=== PATIENT | female | born 1990 | race Caucasian/White ===

== ENCOUNTER 2016-09-23 07:55 | Emergency (ER) | payer OTHER ==
--- NOTE | 2016-09-23 08:10 | ED ---
Skin/Abscess/FB HPI - General Chief complaint: Skin/Abscess/Foreign Body Stated complaint: bite on leg Time Seen by Provider: 09/23/16 08:05 Source: patient, RN notes reviewed Mode of arrival: ambulatory Limitations: no limitations - History of Present Illness Initial comments: 26-year-old female presents emergency Department chief complaint right leg redness. Patient states started yesterday worse today. Patient states it appears something bit her right calf region and she woke up today noticed some redness or streaking towards her knee. Patient has no pain with range of motion of her right knee. Patient denies fever, chills. Patient has no history of MRSA or VRE. Patient states that there is no drainage. Patient states there is essential roger in the redness on her right calf region. - Related Data Previous Rx's Medication Instructions Recorded Cephalexin [Keflex] 500 mg PO Q6HR #40 cap 09/23/16 Allergies Allergy/AdvReac Type Severity Reaction Status Date / Time No Known Allergies Allergy Verified 09/23/16 07:59 Review of Systems ROS Statement: Those systems with pertinent positive or pertinent negative responses have been documented in the HPI. ROS Other: All systems not noted in ROS Statement are negative. Past Medical History Past Medical History: Asthma History of Any Multi-Drug Resistant Organisms: None Reported Past Surgical History: No Surgical Hx Reported Past Psychological History: No Psychological Hx Reported Smoking Status: Former smoker Past Alcohol Use History: None Reported Past Drug Use History: None Reported - Past Family History Mother Family Medical History: Hyperlipidemia, Hypertension General Exam Limitations: no limitations General appearance: alert, in no apparent distress Respiratory exam: Present: normal lung sounds bilaterally. Absent: respiratory distress, wheezes, rales, rhonchi, stridor Cardiovascular Exam: Present: regular rate, normal rhythm, normal heart sounds. Absent: systolic murmur, diastolic murmur, rubs, gallop, clicks Extremities exam: Present: other (Right calf there is a 4 cm area of erythema with central lesion noted, nonfunctional and there is no abscess noted there is some streaking redness to the lateral aspect of her right leg towards her knee. Patient has full range of motion of her right knee no swelling no warmth or pain with range of motion neurovascular intact) Course Vital Signs 09/23/16 07:57 Temperature 97.8 F Pulse Rate 77 Respiratory 20 Rate Blood Pressure 131/80 O2 Sat by Pulse 100 Oximetry Medical Decision Making - Medical Decision Making 26-year-old female presented for right leg rash. Patient appears to have cellulitis. Patient was started on Keflex return parameters were discussed Disposition Clinical Impression: Cellulitis of right leg Disposition: HOME SELF-CARE Condition: Stable Instructions: Cellulitis (ED) Additional Instructions: Please return to the Emergency Department if symptoms worsen or any other concerns. Prescriptions: Cephalexin [Keflex] 500 mg PO Q6HR #40 cap Referrals: Quincy Busch DO [Primary Care Provider] - 1-2 days Time of Disposition: 08:10
[2016-09-23 08:36] VITALS: BP 121/69; PULSE 73; RESP 14; TEMP 98.8
== END 2016-09-23 08:36 | disposition home or self-care (01) ==
LOC: EC 07:55
DX: L03.115 Cellulitis of right lower limb (principal); Z87.891 Personal history of nicotine dependence
CPT/HCPCS: 99283

== ENCOUNTER → 2016-11-11 | Outpatient (CLI) | payer OTHER ==
[2016-11-11 10:52] LABS: CH 29.4; CHCM 33.6; HCT 38.3 % (34.0-46.0); HDW 2.51; HGB 12.7 gm/dL (11.4-16.0); MCH 29.2 pg (25.0-35.0); MCHC 33.2 g/dL (31.0-37.0); MCV 87.9 fL (80.0-100.0); Mean Platelet Volume 7.9; RBC 4.36 m/uL (3.80-5.40); RDW 13.5 % (11.5-15.5)
[2016-11-11 11:10] LABS: Glucose 88 mg/dL (74-99); Non-African American GFR(MDRD) >60 (>60 ml/min/1.73 sqM)
[2016-11-11 11:40] LABS: Hepatitis B Surface Ag Index 0.05
== END | disposition home or self-care (01) ==
LOC: LABWHC1 10:29
PROVIDERS: ATTEND Obstetrics & Gynecology
DX: Z34.81 Encounter for supervision of other normal pregnancy, first trimester (principal); Z3A.00 Weeks of gestation of pregnancy not specified
CPT/HCPCS: 36415; 82565; 82947; 85027; 86762; 86780; 86850; 86870; 86880; 86886; 86900; 86901; 87340

== ENCOUNTER 2017-02-11 23:37 | Outpatient (CLI) | payer OTHER ==
[2017-02-11 23:55] VITALS: BP 127/58; PULSE 93; RESP 16; TEMP 96.3
[2017-02-12 00:35] LABS: Appearance,Urine Clear (Clear); Bacteria,Urine Rare /hpf; Bilirubin,Urine Negative (Negative); Glucose,Urine (UA) Negative (Negative); Ketones,Urine Trace (Negative); Leukocyte Esterase,Urine Trace (Negative); Mucus,Urine Rare /hpf; Nitrite,Urine Negative (Negative); Particle Count 3230; Protein,Urine Trace (Negative); RBC,Urine <1 /hpf (0-5); Specific Gravity,Urine 1.028 (1.001-1.035); Squamous Epithelial Cell,Urine 1 /hpf (0-4); UA Billing (MACRO vs. MICRO) MICRO; WBC,Urine <1 /hpf (0-5)
--- NOTE | 2017-02-12 06:42 | P.MSEPDOC ---
Presenting Problems - Arrival Data Date of Arrival on Unit: 02/11/17 Time of Arrival on Unit: 23:39 Mode of Transport: Wheelchair - Complaint OB-Reason for Admission/Chief Complaint: Possible Onset of Labor Comment: Cramping like pain intermittantly since around 1900 this evening that has worsened Medical History - Information : 6 Para: 3 Term: 2 : 1 Abortions: Spontaneous or Elective: 2 Number of Living Children: 3 - Gestational Age Expected Date of Delivery: 06/03/17 Gestational Age by JILL (wks/days): 24 Weeks and 1 Days - History Comment: Asthma Review of Systems - Review of Systems Constitutional: No problems Breast: No problems ENT: No problems Cardiovascular: No problems Respiratory: No problems Gastrointestinal: No problems Genitourinary: No problems Musculoskeletal: No problems Neurological: No problems Skin: No problems Vital Signs - Temperature Temperature: 96.3 F Temperature Source: Temporal Artery Scan - Pulse Pulse Oximetery Pulse Rate: 93 Pulse Assessment Method: Pulse Oximetry - Respirations Respiratory Rate: 16 Oxygen Delivery Method: Room Air - Blood Pressure Sitting Blood Pressure: 127/58 Blood Pressure Mean: 81 Blood Pressure Source: Automatic Cuff Medical Screen Scoring (Pre) - Cervical Exam Dilation: 0 cm = 0 Membranes: Intact - Uterine Contractions Frequency: N/A Duration: N/A Intensity: N/A - Maternal Vital Signs Maternal Temperature: N/A Maternal Blood Pressure: N/A Signs of Preeclampsia: N/A Maternal Respirations: N/A - Maternal Trauma Maternal Trauma: N/A - Assessment Baseline FHR: 155 Heart Rate - NICHD Category: Category I (Normal) = 0 NST: Reactive Position: N/A Station: N/A - Total Score Total Score (Pre): 0 Physician Notification (Pre) - Physician Notified Physician Notified Date: 02/11/17 Physician Notified Time: 23:54 Physician/Practitioner Notifed:: Dr. Yan - Notification Comment Comment: Dr. Yan states to check cervix, discard ffn if patient is closed. Collected and send a ua. Medical Screen Scoring (Post) - Cervical Exam Dilation: 0 cm = 0 Membranes: Intact - Maternal Vital Signs Maternal Temperature: N/A Signs of Preeclampsia: N/A Maternal Respirations: N/A - Maternal Trauma Maternal Trauma: N/A - Assessment Heart Rate: 150 - Total Score Total Score (Post): 0 - Post Treatment Level of Risk Post Treatment Level of Risk: Low (0-5) Physician Notification (Post) - Physician Notified Physician Notified Date: 02/12/17 Physician Notified Time: 00:41 Physician/Practitioner Notified:: Dr Yan Spoke With: Dr Yan New Order Received: Yes - Notification Comment Comment: pt to be d/c home, if symptoms get worse to come back in Disposition - Disposition OB Disposition: Discharge to home Discharge Date: 02/12/17 Discharge Time: 00:45 I agree with the RN Medical Screening Exam: Yes Risk & Benefit of care provided described in d/c instruction: Yes Diagnosis: FALSE LABOR BEFORE 37 COMPLETED WEEKS OF GEST, SECOND TRI
== END 2017-02-12 00:45 | disposition home or self-care (01) ==
LOC: FBPOP 23:37
PROVIDERS: ATTEND Obstetrics & Gynecology
DX: O47.03 False labor before 37 completed weeks of gestation, third trimester (principal); Z3A.24 24 weeks gestation of pregnancy
CPT/HCPCS: 81001; G0463; 99213

== ENCOUNTER → 2017-03-06 | Outpatient (CLI) | payer OTHER ==
[2017-03-06 09:40] LABS: CH 28.4; CHCM 33.1; HCT 33.5 % (34.0-46.0); HDW 3.17; HGB 11.3 gm/dL (11.4-16.0); MCH 29.1 pg (25.0-35.0); MCHC 33.8 g/dL (31.0-37.0); MCV 86.1 fL (80.0-100.0); Mean Platelet Volume 8.2; RBC 3.88 m/uL (3.80-5.40); RDW 14.2 % (11.5-15.5); WBC 11.2 k/uL (3.8-10.6)
== END | disposition home or self-care (01) ==
LOC: LABWHC1 08:08
PROVIDERS: ATTEND Obstetrics & Gynecology
DX: Z34.82 Encounter for supervision of other normal pregnancy, second trimester (principal)
CPT/HCPCS: 36415; 82950; 85027; 86850; 86870; 86880; 86886

== ENCOUNTER 2017-05-08 05:24 | Outpatient (CLI) | payer BC, OTHER ==
[2017-05-08 07:51] VITALS: BP 126/66; PULSE 92; RESP 17; TEMP 97.4
--- NOTE | 2017-05-11 08:50 | P.MSEPDOC ---
Presenting Problems - Arrival Data Date of Arrival on Unit: 05/08/17 Time of Arrival on Unit: 05:27 Mode of Transport: Wheelchair - Complaint OB-Reason for Admission/Chief Complaint: Possible Onset of Labor Comment: Contractions beginning about 0200 with vaginal pressure starting about 0400 Medical History - Information : 6 Para: 3 Term: 2 : 1 Abortions: Spontaneous or Elective: 2 Number of Living Children: 3 - Gestational Age Gestational Age by JILL (wks/days): 36 Weeks and 2 Days - History Complications: Incompetent Cervix, Prior Comment: Previous 34 week delivery with first . Documented short cervix with this . Review of Systems - Review of Systems Constitutional: No problems Breast: No problems ENT: No problems Cardiovascular: No problems Respiratory: No problems Gastrointestinal: No problems Genitourinary: No problems Musculoskeletal: No problems Neurological: No problems Skin: No problems Vital Signs - Temperature Temperature: 97.4 F Temperature Source: Temporal Artery Scan - Pulse Pulse Oximetery Pulse Rate: 92 Pulse Assessment Method: Pulse Oximetry - Respirations Respiratory Rate: 17 Oxygen Delivery Method: Room Air O2 Sat by Pulse Oximetry: 98 - Blood Pressure Right Arm Blood Pressure: 126/66 Blood Pressure Mean: 86 Blood Pressure Source: Automatic Cuff Medical Screen Scoring (Pre) - Cervical Exam Dilation: 1-3 cm = 1 Membranes: Intact - Uterine Contractions Frequency: N/A Duration: N/A Intensity: N/A - Maternal Vital Signs Maternal Temperature: N/A Maternal Blood Pressure: N/A Signs of Preeclampsia: N/A Maternal Respirations: N/A - Maternal Trauma Maternal Trauma: N/A - Assessment Baseline FHR: 140 Heart Rate - NICHD Category: Category I (Normal) = 0 NST: Reactive Position: N/A Station: N/A - Total Score Total Score (Pre): 1 - Level of Risk Level of Risk: Low (0-5) Physician Notification (Pre) - Physician Notified Physician Notified Date: 05/08/17 Physician Notified Time: 06:33 Physician/Practitioner Notifed:: Elysia Spoke With: Elysia New Order Received: Yes (Discharge orders) Disposition - Disposition OB Disposition: Discharge to home Discharge Date: 05/08/17 Discharge Time: 06:40 I agree with the RN Medical Screening Exam: Yes Risk & Benefit of care provided described in d/c instruction: Yes Diagnosis: FALSE LABOR BEFORE 37 COMPLETED WEEKS OF GEST, THIRD TRI
== END 2017-05-08 06:40 | disposition home or self-care (01) ==
LOC: FBPOP 05:24
PROVIDERS: ATTEND Obstetrics & Gynecology
DX: O47.03 False labor before 37 completed weeks of gestation, third trimester (principal); Z3A.36 36 weeks gestation of pregnancy
CPT/HCPCS: 59025; G0463; 99213

== ENCOUNTER 2017-05-19 02:32 | Outpatient (CLI) | payer OTHER ==
[2017-05-19 04:12] VITALS: BP 127/68; PULSE 85; RESP 16; TEMP 97.1
--- NOTE | 2017-05-19 11:17 | P.MSEPDOC ---
Presenting Problems - Arrival Data Date of Arrival on Unit: 05/19/17 Time of Arrival on Unit: 02:32 Mode of Transport: Ambulatory - Complaint OB-Reason for Admission/Chief Complaint: Possible Onset of Labor Comment: c/o itching, nausea with contractions, and contractions. Medical History - Information : 6 Para: 3 Term: 2 : 1 Abortions: Spontaneous or Elective: 2 Number of Living Children: 3 - Gestational Age Gestational Age by JILL (wks/days): 37 Weeks and 6 Days Review of Systems - Review of Systems Constitutional: No problems Breast: No problems ENT: No problems Cardiovascular: No problems Respiratory: No problems Gastrointestinal: No problems Genitourinary: No problems Musculoskeletal: No problems Neurological: No problems Skin: Itching Comment: generalized itching on arms and legs. Vital Signs - Temperature Temperature: 97.1 F Temperature Source: Temporal Artery Scan - Pulse Right Pulse Rate: 85 Pulse Assessment Method: Pulse Oximetry - Respirations Respiratory Rate: 16 Oxygen Delivery Method: Room Air O2 Sat by Pulse Oximetry: 100 - Blood Pressure Right Arm Blood Pressure: 127/68 Blood Pressure Mean: 87 Blood Pressure Source: Automatic Cuff Medical Screen Scoring (Pre) - Cervical Exam Dilation: 1-3 cm = 1 Effacement: Exam Deferred Membranes: Intact - Uterine Contractions Frequency: > 5 minutes apart = 1 Duration: > 40 seconds = 2 Intensity: N/A - Maternal Vital Signs Maternal Temperature: N/A Maternal Blood Pressure: N/A Signs of Preeclampsia: N/A Maternal Respirations: N/A - Maternal Trauma Maternal Trauma: N/A - Assessment Baseline FHR: 135 Heart Rate - NICHD Category: Category I (Normal) = 0 NST: Reactive Position: N/A Station: N/A - Total Score Total Score (Pre): 4 - Level of Risk Level of Risk: Low (0-5) Physician Notification (Pre) - Physician Notified Physician Notified Date: 05/19/17 Physician Notified Time: 03:08 Physician/Practitioner Notifed:: Dr. Naidu Spoke With: Dr. Naidu New Order Received: No - Notification Comment Comment: Dr. Naidu notifed of pt c/o generalized itching, nause with contractions starting around 1500, NST, Vitals, and cervical exam. Pt okay to take over the counter benadryl and if not making change ok for discharge. Keep appointment in office with Dr. Yan. Disposition - Disposition OB Disposition: Discharge to home Discharge Date: 05/19/17 Discharge Time: 03:48 I agree with the RN Medical Screening Exam: Yes Risk & Benefit of care provided described in d/c instruction: Yes Diagnosis: FALSE LABOR AT OR AFTER 37 COMPLETED WEEKS OF GESTATION
== END 2017-05-19 03:48 | disposition home or self-care (01) ==
LOC: FBPOP 02:32
PROVIDERS: ATTEND Obstetrics & Gynecology
DX: O47.1 False labor at or after 37 completed weeks of gestation (principal); Z3A.37 37 weeks gestation of pregnancy
CPT/HCPCS: 59025; 99213

== ENCOUNTER 2017-05-25 18:38 | Outpatient (CLI) | payer BC ==
[2017-05-25 19:27] VITALS: PULSE 105; RESP 16; TEMP 97.1
[2017-05-25 20:17] VITALS: BP 124/61
--- NOTE | 2017-06-13 08:07 | P.MSEPDOC ---
Presenting Problems - Arrival Data Date of Arrival on Unit: 05/25/17 Time of Arrival on Unit: 18:40 Mode of Transport: Ambulatory - Complaint OB-Reason for Admission/Chief Complaint: Possible Onset of Labor Medical History - Information : 6 Para: 3 Term: 3 : 0 Abortions: Spontaneous or Elective: 2 Number of Living Children: 3 - Gestational Age Gestational Age by JILL (wks/days): 38 Weeks and 5 Days Review of Systems - Review of Systems Constitutional: No problems Breast: No problems ENT: No problems Cardiovascular: No problems Respiratory: No problems Gastrointestinal: No problems Genitourinary: No problems Musculoskeletal: No problems Neurological: No problems Skin: No problems Vital Signs - Temperature Temperature: 97.1 F Temperature Source: Tympanic - Pulse Right Radial Pulse Rate: 105 Pulse Assessment Method: Automatic Cuff - Respirations Respiratory Rate: 16 Oxygen Delivery Method: Room Air - Blood Pressure Right Arm Blood Pressure: 124/61 Blood Pressure Mean: 82 Blood Pressure Source: Automatic Cuff Medical Screen Scoring (Pre) - Cervical Exam Dilation: 1-3 cm = 1 Effacement: More than 50% = 2 Membranes: Intact - Uterine Contractions Frequency: > 5 minutes apart = 1 Duration: N/A Intensity: N/A - Maternal Vital Signs Maternal Temperature: N/A Maternal Blood Pressure: N/A Signs of Preeclampsia: N/A Maternal Respirations: N/A - Maternal Trauma Maternal Trauma: N/A - Assessment Heart Rate - NICHD Category: Category I (Normal) = 0 NST: Reactive Position: N/A Station: N/A - Total Score Total Score (Pre): 4 - Level of Risk Level of Risk: Low (0-5) Physician Notification (Pre) - Notification Comment Comment: contx since 1 am. states getting stronger and stronger. denies srom and /or bleeding Medical Screen Scoring (Post) - Cervical Exam Dilation: 1-3 cm = 1 Membranes: Intact - Maternal Vital Signs Maternal Temperature: N/A Signs of Preeclampsia: N/A Maternal Respirations: N/A - Assessment Heart Rate: 150 Heart Rate - NICHD Category: Category I (Normal) = 0 NST: Reactive Station: N/A - Total Score Total Score (Post): 1 - Post Treatment Level of Risk Post Treatment Level of Risk: Low (0-5) Physician Notification (Post) - Physician Notified Physician Notified Date: 05/25/17 Physician Notified Time: 19:53 Physician/Practitioner Notified:: Dr. Easton Spoke With: Dr. Easton New Order Received: Yes (D/c pt to home) - Notification Comment Comment: Dr. Easton called and given report on pt in triage, c/o contractions, vag exam,. reactive nst, and vag exam with no change after 1 hour. Orders recieved to d/c pt to. home Disposition - Disposition OB Disposition: Discharge to home Discharge Date: 05/25/17 Discharge Time: 20:00 I agree with the RN Medical Screening Exam: Yes Risk & Benefit of care provided described in d/c instruction: Yes Diagnosis: FALSE LABOR AT OR AFTER 37 COMPLETED WEEKS OF GESTATION
== END 2017-05-25 20:00 | disposition home or self-care (01) ==
LOC: FBPOP 18:38
PROVIDERS: ATTEND Obstetrics & Gynecology
DX: O47.1 False labor at or after 37 completed weeks of gestation (principal); Z3A.38 38 weeks gestation of pregnancy
CPT/HCPCS: 59025; 99213

== ENCOUNTER 2017-05-27 00:03 | Outpatient (CLI) | payer BC ==
[2017-05-27 01:16] VITALS: BP 121/64; PULSE 74; RESP 16; TEMP 97.1
--- NOTE | 2017-06-13 08:06 | P.MSEPDOC ---
Presenting Problems - Arrival Data Date of Arrival on Unit: 05/27/17 Time of Arrival on Unit: 00:03 Mode of Transport: Wheelchair - Complaint OB-Reason for Admission/Chief Complaint: Other Comment: Pt arrives to triage with c/o of itching of bilateral arms and legs, and contractions. Medical History - Information : 6 Para: 3 Term: 3 : 0 Abortions: Spontaneous or Elective: 2 Number of Living Children: 3 - Gestational Age Gestational Age by JILL (wks/days): 39 Weeks and 0 Days Review of Systems - Review of Systems Constitutional: No problems Breast: No problems ENT: No problems Cardiovascular: No problems Respiratory: No problems Gastrointestinal: No problems Genitourinary: No problems Musculoskeletal: No problems Neurological: No problems Skin: Itching Vital Signs - Temperature Temperature: 97.1 F Temperature Source: Oral - Pulse Right Brachial Pulse Rate: 74 Pulse Assessment Method: Automatic Cuff - Respirations Respiratory Rate: 16 Oxygen Delivery Method: Room Air O2 Sat by Pulse Oximetry: 100 - Blood Pressure Right Arm Blood Pressure: 121/64 Blood Pressure Mean: 83 Blood Pressure Source: Automatic Cuff Medical Screen Scoring (Pre) - Cervical Exam Dilation: 1-3 cm = 1 Membranes: Intact - Uterine Contractions Frequency: > 5 minutes apart = 1 Duration: > 40 seconds = 2 - Maternal Vital Signs Maternal Temperature: N/A Signs of Preeclampsia: N/A Maternal Respirations: N/A - Maternal Trauma Maternal Trauma: N/A - Assessment Baseline FHR: 135 Heart Rate - NICHD Category: Category I (Normal) = 0 NST: Reactive Position: N/A Station: N/A - Total Score Total Score (Pre): 4 - Level of Risk Level of Risk: Low (0-5) Physician Notification (Pre) - Physician Notified Physician Notified Date: 05/27/17 Physician Notified Time: 00:37 Physician/Practitioner Notifed:: Dr. Easton Spoke With: Dr. Easton New Order Received: Yes (D/c pt to home) - Notification Comment Comment: Dr. Easton called and given report on pt c/o of itching on both bilat arms and legs, and contractions. Orders recieved to d/c pt to home. Disposition - Disposition OB Disposition: Discharge to home Discharge Date: 05/27/17 Discharge Time: 00:42 I agree with the RN Medical Screening Exam: Yes Physician's MSE Comment: The itching that the patient is complaining of was not new and not severe. Risk & Benefit of care provided described in d/c instruction: Yes Diagnosis: FALSE LABOR AT OR AFTER 37 COMPLETED WEEKS OF GESTATION
== END 2017-05-27 00:42 | disposition home or self-care (01) ==
LOC: FBPOP 00:03
PROVIDERS: ATTEND Obstetrics & Gynecology
DX: O47.1 False labor at or after 37 completed weeks of gestation (principal); Z3A.39 39 weeks gestation of pregnancy
CPT/HCPCS: 59025; 99213

== ENCOUNTER 2017-05-28 06:15 | Inpatient (IN) | payer BC, OTHER ==
[2017-05-28] MEDS ORDERED: CARBOPROST TROMETHAMINE 250 MCG/ML 1 ML AMP IM PRN (06:48)
[2017-05-28] MEDS ORDERED: LIDOCAINE 1% (PF) 10 MG/ML (30 ML SDV) SQ PRN (06:48)
[2017-05-28] MEDS ORDERED: TERBUTALINE 1 MG/ML VIAL SQ PRN (06:48)
[2017-05-28] MEDS ORDERED: OXYTOCIN 10 UNIT/ML 1 ML VIAL IM PRN (06:48)
[2017-05-28] MEDS ORDERED: METHYLERGONOVINE 0.2 MG/ML 1 ML AMP IM PRN (06:48)
[2017-05-28] MEDS ORDERED: OXYTOCIN 20 UNITS/1000 ML NS 1,000 ML IV SCH (07:00)
[2017-05-28] MEDS: LACTATED RINGERS 1,000 ML IV SCH ×3 (07:06→16:38)
[2017-05-28 07:23] LABS: Basophils % (A) 0 %; CH 25.5; CHCM 32.3; Eosinophils # (A) 0.1 k/uL (0-0.7); Eosinophils % (A) 1 %; HCT 32.2 % (34.0-46.0); HDW 3.42; HGB 10.4 gm/dL (11.4-16.0); Hypochromasia Slight; Luc % (Auto) 2; Lymphocytes # (A) 2.2 k/uL (1.0-4.8); Lymphocytes % (A) 24 %; MCH 25.7 pg (25.0-35.0); MCHC 32.4 g/dL (31.0-37.0); MCV 79.2 fL (80.0-100.0); Mean Platelet Volume 8.3; Monocytes # (A) 0.6 k/uL (0-1.0); Monocytes % (A) 6 %; Neutrophils # (A) 6.2 k/uL (1.3-7.7); Neutrophils % (A) 66 %; Poikilocytosis Slight; RBC 4.07 m/uL (3.80-5.40); RDW 15.6 % (11.5-15.5); WBC 9.4 k/uL (3.8-10.6); WBC (Perox) 9.76
[2017-05-28 07:49] VITALS: BMI 34.9
[2017-05-28] MEDS ORDERED: fentaNYL (PF) 50 MCG/ML 5 ML AMP ONE (14:05)
[2017-05-28] MEDS ORDERED: SODIUM CHLORIDE 0.9% 100 ML BAG ONE (14:05)
[2017-05-28] MEDS ORDERED: BUPIVACAINE (PF) 0.25% 30 ML VIAL ONE (14:05)
[2017-05-28] MEDS ORDERED: BUPIVACAINE (PF) 0.25% 25 ML, fentaNYL (PF) 200 MCG in SODIUM CHLORIDE 0.9% 71 ML EPIDURAL ONE (14:25)
[2017-05-28] MEDS ORDERED: ACETAMINOPHEN TAB 325 MG TAB PO PRN (19:12)
[2017-05-28] MEDS ORDERED: BENZOCAINE/MENTHOL SPRAY 1 GM/SPRAY AEROSOL TOPICAL PRN (19:12)
[2017-05-28] MEDS ORDERED: WITCH HAZEL 1 EACH MED..PAD TOPICAL PRN (19:12)
[2017-05-28] MEDS ORDERED: SIMETHICONE 80 MG CHEWABLE PO PRN (19:12)
[2017-05-28] MEDS ORDERED: HYDROCORTISONE 2.5% RECTAL CREAM 30 GM TUBE RECTAL PRN (19:12)
[2017-05-28] MEDS ORDERED: diphenhydrAMINE 50 MG CAP PO PRN (19:12)
[2017-05-28] MEDS ORDERED: LANOLIN CREAM 5 GM TUBE TOPICAL PRN (19:12)
[2017-05-28] MEDS ORDERED: diphenhydrAMINE 50 MG/ML 1 ML VIAL IVP PRN ×2 (19:12)
[2017-05-28] MEDS ORDERED: ZOLPIDEM 5 MG TAB PO PRN (19:12)
[2017-05-28] MEDS ORDERED: diphenhydrAMINE 25 MG CAP PO PRN (19:12)
--- NOTE | 2017-05-28 19:16 | P.HPOB ---
History of Present Illness H&P Date: 05/28/17 Chief Complaint: Uterine at term: Induction of labor Niyah is a 27-year-old at 39 weeks gestation who arrives for elective induction of labor. Her course was, complicated by anit little c antibody as well as previous shortened cervix. We did coordinate care with maternal- medicine and she is now 39 weeks gestation. Pertinent labs did include O+ blood type, Rh antibody positive. Rubella was immune, hepatitis B surface and was negative as well as group B strep. On physical exam vital signs are stable and afebrile. Heart regular, lungs clear, extremities without pain. Osteopathic exam is unremarkable. Abdomen is soft gravid uterus is noted. Extremities are without pain. Assessment intrauterine at term. Anti-little C positive on antibody screen. Monitored closely with no change in titer throughout the . Past Medical History Past Medical History: Asthma History of Any Multi-Drug Resistant Organisms: None Reported Past Surgical History: No Surgical Hx Reported Additional Past Surgical History / Comment(s): cerclage with 2nd Past Psychological History: No Psychological Hx Reported Smoking Status: Never smoker Past Alcohol Use History: None Reported Past Drug Use History: None Reported - Past Family History Mother Family Medical History: Hyperlipidemia, Hypertension Medications and Allergies Home Medications Medication Instructions Recorded Confirmed Type No Known Home Medications [No 05/19/17 05/28/17 History Known Home Medications] Allergies Allergy/AdvReac Type Severity Reaction Status Date / Time No Known Allergies Allergy Verified 05/28/17 06:47 Exam Osteopathic Statement: *. No significant issues noted on an osteopathic structural exam other than those noted in the History and Physical/Consult. - Vital Signs Vital signs: Vital Signs Temp Pulse Resp BP Pulse Ox 05/28/17 07:40 96.7 F L 89 16 120/66 99 Intake and Output 05/28/17 05/28/17 05/28/17 06:59 14:59 22:59 Intake Total 1000 Balance 1000 Intake: IV 1000 Lactated Ringers 1,000 ml 1000 @ 125 mls/hr IV .Q8H GIULIA Rx#:[id number] Other: Weight 95.254 kg 95.254 kg Patient Weight 05/29/17 06:59 Weight 95.254 kg Results Result Diagrams: 05/28/17 07:00 Abnormal Lab Results - Last 24 Hours (Table) 05/28/17 Range/Units 07:00 Hgb 10.4 L (11.4-16.0) gm/dL Hct 32.2 L (34.0-46.0) % MCV 79.2 L (80.0-100.0) fL RDW 15.6 H (11.5-15.5) %
--- NOTE | 2017-05-28 19:18 | P.PROBDLV ---
Vaginal Delivery Note - . Vaginal Delivery Note: Patient progressed to complete and pushing with spontaneous vaginal delivery of a viable female over an intact perineum. During the pushing process and the latter part of her labor she was noted to have variable decelerations predominantly they were from the 140s to 150s down to the 90s but did rapidly returned to baseline. During the final aspect of her pushing heart rate was noted to be in the 60s to 70s however she was able to bring the baby down rapidly and deliver the head without difficulty. A nuchal cord 1 was noted at that point was easily reduced. Anterior and posterior shoulders were then delivered followed by the remainder the baby. Mouth nares were suctioned and baby was placed on mother's abdomen where the umbilical cord was clamped and cut in usual fashion. Nursery personnel was present to assume care. Placenta was then delivered intact and Pitocin was added to the IV. scores were 9 and 9 at one and 5 minutes respectively. The baby's weight is still pending. Both mother and baby however appear stable.
[2017-05-28 19:43] VITALS: RESP 16
[2017-05-28] MEDS: SENNOSIDES-DOCUSATE SODIUM 1 EACH TAB PO SCH (22:42)
[2017-05-29] MEDS: IBUPROFEN 600 MG TAB PO PRN ×2 (04:37→12:58)
--- NOTE | 2017-05-29 08:34 | P.DS ---
Providers Date of admission: 05/28/17 06:36 Expected date of discharge: 05/29/17 Attending physician: Linwood Yan Primary care physician: Stated None Hospital Course: Is doing very well day 1. She is involuting, voiding, and she is tolerating her diet. She voices no complaints. Vital signs are stable and afebrile. Heart regular, lungs clear, extremities without pain. Abdomen is soft uterus is firm lochia is reported to be light. Prescription for Motrin has been provided. We'll plan discharged home today and she will follow up with me in 6 weeks. Discharge instructions otherwise her thoroughly reviewed and all questions are answered for her at this time. Patient Condition at Discharge: Good Plan - Discharge Summary New Discharge Prescriptions: New Ibuprofen [Motrin] 600 mg PO Q6HR PRN #30 tab PRN Reason: Pain Discharge Medication List Ibuprofen [Motrin] 600 mg PO Q6HR PRN #30 tab 05/29/17 [Rx] Follow up Appointment(s)/Referral(s): Linwood Yan DO [Doctor of Osteopathic Medicine] - 1 Week Activity/Diet/Wound Care/Special Instructions: no heavy lifting no heavy lifting, limit stairs and driving, and pelvic rest. If any high temperatures, heavy bleeding, or severe pain call my office Discharge Disposition: HOME SELF-CARE
[2017-05-29] MEDS: SENNOSIDES-DOCUSATE SODIUM 1 EACH TAB PO SCH ×2 (10:03→15:17)
[2017-05-29 16:01] VITALS: BP 132/68; PULSE 85; TEMP 98.6
== END 2017-05-29 19:15 | disposition home or self-care (01) | DRG 775 ==
LOC: 4FBP 06:36
PROVIDERS: ADMIT Obstetrics & Gynecology; ATTEND Obstetrics & Gynecology
PROC: 10E0XZZ Delivery of Products of Conception, External Approach (ICD-10-PCS; principal; 2017-05-28)
PROC: 3E033VJ Introduction of Other Hormone into Peripheral Vein, Percutaneous Approach (ICD-10-PCS; 2017-05-28)
PROC: 10907ZC Drainage of Amniotic Fluid, Therapeutic from Products of Conception, Via Natural or Artificial Opening (ICD-10-PCS; 2017-05-28)
PROC: 00HU33Z Insertion of Infusion Device into Spinal Canal, Percutaneous Approach (ICD-10-PCS; 2017-05-28)
PROC: 3E0R3BZ Introduction of Anesthetic Agent into Spinal Canal, Percutaneous Approach (ICD-10-PCS; 2017-05-28)
DX: O69.81X0 Labor and delivery complicated by cord around neck, without compression, not applicable or unspecified (principal); J45.909 Unspecified asthma, uncomplicated; O99.52 Diseases of the respiratory system complicating childbirth; O76 Abnormality in fetal heart rate and rhythm complicating labor and delivery; Z3A.39 39 weeks gestation of pregnancy; Z37.0 Single live birth
CPT/HCPCS: 85025; 88307

== ENCOUNTER 2018-02-13 14:41 | Inpatient (IN) | payer BC, MEDICAID ==
[2018-02-13 15:34] LABS: Amphetamine Screen,Urine Not Detected (NotDetected); Barbiturate Screen,Urine Not Detected (NotDetected); Benzodiazepines Screen,Urine Not Detected (NotDetected); Cocaine Screen,Urine Not Detected (NotDetected); Methadone Screen, Urine Not Detected (NotDetected); Opiate Screen,Urine Not Detected (NotDetected); Oxycodone Screen, Urine Not Detected (NotDetected); Phencyclidine Screen,Urine Not Detected (NotDetected); Tricyclic Antidepressant,Urine Not Detected (NotDetected); Urn Cannabinoid Scrn Detected (NotDetected)
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
[2018-02-13 16:55] VITALS: RESP 18
[2018-02-13 17:26] VITALS: BMI 32.7
[2018-02-13] MEDS ORDERED: MAG HYDROX/AL HYDROX/SIMETH 30 ML CUP PO PRN (18:09)
[2018-02-13] MEDS ORDERED: MAGNESIUM HYDROXIDE 2,400 MG/10 ML CUP PO PRN (18:09)
[2018-02-13] MEDS ORDERED: LORazepam 1 MG TAB PO PRN (18:09)
[2018-02-13] MEDS ORDERED: ACETAMINOPHEN TAB 325 MG TAB PO PRN (18:09)
[2018-02-13] MEDS ORDERED: LORazepam 2 MG/ML INJ IM PRN (18:50)
[2018-02-13] MEDS ORDERED: ZIPRASIDONE 20 MG VIAL IM PRN (18:51)
[2018-02-13 20:13] LABS: Amorphous Sediment,Urine Rare /hpf; Appearance,Urine Clear (Clear); Bilirubin,Urine Negative (Negative); Blood,Urine Negative (Negative); Color,Urine Yellow; Glucose,Urine (UA) Negative (Negative); Ketones,Urine 1+ (Negative); Leukocyte Esterase,Urine Moderate (Negative); Mucus,Urine Few /hpf; Nitrite,Urine Negative (Negative); PH, Urine 7.5 (5.0-8.0); Protein,Urine Trace (Negative); RBC,Urine 2 /hpf (0-5); Specific Gravity,Urine 1.024 (1.001-1.035); Squamous Epithelial Cell,Urine 4 /hpf (0-4); WBC,Urine 2 /hpf (0-5)
--- NOTE | 2018-02-13 20:22 | CONS ---
CONSULTATION DATE OF CONSULTATION: 02/13/18. REASON FOR CONSULTATION: Medical management requested by Dr. Menon. CONSULTATION: This is a pleasant 27-year-old patient of Dr. Busch. The patient got into her argument with her and that precipitated her admission. She has been having suicidal thoughts. The patient was given Lamictal for 5 days by her family doctor and switched to Abilify which she did not take; hence, she decided to come in. Patient has 4 children at home. Looks like age 8, 4, 2 and 8-month-old. The patient started over eating, putting on weight, having trouble sleeping, agitated. She says she is missing her kids and would like to go back. The patient's asthma is controlled. Also history of bipolar disorder. REVIEW OF SYSTEMS: CONSTITUTIONAL: None. HEENT: None. RESPIRATORY: None. CARDIOVASCULAR: None. GASTROINTESTINAL: None. GENITOURINARY: None. MUSCULOSKELETAL: None. DERMATOLOGICAL: Tattoos. HEMATOLOGIC, LYMPHATIC: None. PSYCHIATRY: As above. NEUROLOGICAL: Trouble sleeping. PAST MEDICAL HISTORY: Asthma, bipolar disorder. PAST SURGICAL HISTORY: Cerclage. SOCIAL HISTORY: Smokes about 2 joints a day, more so recently. No alcohol. Did smoke in the past. FAMILY HISTORY: Hyperlipidemia, hypertension, bipolar. HOME MEDICATIONS: Abilify, patient did not start the same. ALLERGIES: None. PHYSICAL EXAMINATION: Temperature 98.4, pulse 77, respirations 18, blood pressure 125/83, pulse ox 99%. GENERAL APPEARANCE: Well built, BMI 32.7, sitting up, slightly anxious. EYES: Pupils equal. Conjunctivae normal. HEENT: External appearance of nose and ears normal. Oral cavity normal. NECK: JVD not raised. Mass not palpable. RESPIRATORY: Effort, lungs are clear. CARDIOVASCULAR: First and second sounds, no edema. ABDOMEN: Soft, nontender. Liver and spleen not palpable. PSYCHIATRY: Alert and oriented x3. Mood and affect slightly anxious-appearing. DERMATOLOGICAL: Multiple tattoos. INVESTIGATIONS: Urine drug screen positive for marijuana. ASSESSMENT: 1. Obesity, BMI 32.7. 2. Chronic marijuana use. 3. Chronic insomnia from underlying psych disorder. 4. Intermittent asthma controlled. PLAN: The patient will be put on medications per Psychiatry. The patient may use melatonin at night. I did talk to the patient about her diet. Will have a dietitian see her for the same. The patient advised not to use marijuana. The patient to follow up with Dr. Busch upon discharge. Thank you Dr. Menon. JANUSZ / MARIELLE: [id number] /
[2018-02-14 07:43] LABS: Basophils # (A) 0.1 k/uL (0-0.2); Basophils % (A) 1 %; Eosinophils # (A) 0.1 k/uL (0-0.7); Eosinophils % (A) 1 %; HCT 38.3 % (34.0-46.0); HGB 12.7 gm/dL (11.4-16.0); Lymphocytes # (A) 2.9 k/uL (1.0-4.8); Lymphocytes % (A) 33 %; MCH 26.9 pg (25.0-35.0); MCHC 33.1 g/dL (31.0-37.0); MCV 81.2 fL (80.0-100.0); Monocytes # (A) 0.5 k/uL (0-1.0); Monocytes % (A) 6 %; Neutrophils % (A) 57 %; Platelet Count 345 k/uL (150-450); RBC 4.71 m/uL (3.80-5.40); RDW 15.3 % (11.5-15.5); WBC 8.8 k/uL (3.8-10.6)
[2018-02-14 08:05] LABS: ALT 27 U/L (9-52); AST 26 U/L (14-36); Albumin 4.8 g/dL (3.5-5.0); Alkaline Phosphatase 46 U/L (38-126); Anion Gap 17 mmol/L; Blood Urea Nitrogen 13 mg/dL (7-17); Calcium 9.6 mg/dL (8.4-10.2); Carbon Dioxide 22 mmol/L (22-30); Chloride 103 mmol/L (98-107); Glucose 97 mg/dL (74-99); Potassium 3.8 mmol/L (3.5-5.1); Sodium 142 mmol/L (137-145); Total Bilirubin 0.7 mg/dL (0.2-1.3); Total Protein 7.6 g/dL (6.3-8.2)
--- NOTE | 2018-02-14 08:50 | P.HP ---
Psychiatric H&P - . H&P Date: 02/14/18 History & Physical: Identification data: The patient is a 27-year-old female admitted to the psychiatric unit voluntarily with complaints of depression. History of present illness: She stated that over the last 2 and half months she has been more depressed, irritable, anxious and "bourgeois". On the day of admission she had an argument with her . He left the house ostensibly to give her "time to cool off". She followed him in her car. She was unable to explain why she ran after him or what she would do if she were to catch up with him. At one point she stopped following him and [place]. She was acutely distressed and called the mental health unit. On the advice of the nurse she presented to the emergency room. She denied that she told the EPS nurse that she thoughts of suicide or thought about "jumping into the river". She described feelings depression, sadness, hopelessness and helplessness and worthlessness. She feels guilty and ruminates about past errors. "Sometimes" she feels that her current illness as a punishment for past misdeeds. However, she denied hearing accusatory or denunciatory voices or experiencing threatening visual hallucinations. She feels at times that life is not worth living and "sometimes" wishes she were but she denied thinking about suicide. She denied history of suicide ideas, gestures or attempts. She has difficulty falling and staying asleep. She has thoughts and feelings of fatigue and weakness related to her ability to manage a household and take care of the children. He stated that if she didn't have the children to take care of she would spend all day in bed. She described subjective tension and irritability. She has periods of increased anxiety characterized by hyperventilation. She denied experiencing episodes of persistent irritability, elevated mood or euphoria consistent with rommel or hypomania. She has periods of increased anxiety that are suggestive of panic attacks. She avoids leaving the house as much is possible and described feeling overwhelmed in crowds. She denied obsessions or compulsions. She denied psychotic symptoms such as hallucinations , delusions, ideas reference, thought insertion etc. She does not drink and denied use of drugs to get high, help her sleep or change her mood. Past psychiatric history: She first received mental health services when she was 15 years old. She told her mother that she saw a "demon" and woke up one morning unable to move because she felt they "presence over the bed." She alleged that she was diagnosed with ADHD. She described a. Depression about 2 years ago where she met with a physician and received counseling. She stated that her mood and overall functioning improved markedly. However, she lost her insurance and could not continue meeting with the physician and a counselor. She stated that she was doing well until earlier this year when her anxiety and depression worsened again. She denied prior psychiatric hospitalizations. Substance use history: She denied problems with alcohol or drugs. She is never been any substance abuse treatment program. Medical history: She denied history of major medical illnesses. Family psychiatric/substance use history: She stated her mother is diagnosed with bipolar illness and an anxiety disorder and is actively engaged in mental health treatment. Social history: She was born and raised in [place]. She left school at age 15. She was unable to explain the reason for leaving school. She did not obtain a GED. 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 She's been for 7 years and has known her for 16 years. They have 4 children ages 10 through 8 months. Allergies Allergy/AdvReac Type Severity Reaction Status Date / Time No Known Allergies Allergy Verified 02/13/18 17:27 Vital Signs Temp 98.2 F 02/14/18 06:25 Pulse 80 02/14/18 06:25 Resp 18 02/14/18 06:25 BP 150/79 02/14/18 06:25 Pulse Ox 99 02/13/18 16:54 Intake & Output 02/13/18 02/14/18 02/14/18 18:59 06:59 18:59 Weight 89.131 kg Laboratory Last Values WBC 8.8 k/uL (3.8-10.6) 02/14/18 07:23 RBC 4.71 m/uL (3.80-5.40) 02/14/18 07:23 Hgb 12.7 gm/dL (11.4-16.0) 02/14/18 07:23 Hct 38.3 % (34.0-46.0) 02/14/18 07:23 MCV 81.2 fL (80.0-100.0) 02/14/18 07:23 MCH 26.9 pg (25.0-35.0) 02/14/18 07:23 MCHC 33.1 g/dL (31.0-37.0) 02/14/18 07:23 RDW 15.3 % (11.5-15.5) 02/14/18 07:23 Plt Count 345 k/uL (150-450) 02/14/18 07:23 Neutrophils % 57 % 02/14/18 07:23 Lymphocytes % 33 % 02/14/18 07:23 Monocytes % 6 % 02/14/18 07:23 Eosinophils % 1 % 02/14/18 07:23 Basophils % 1 % 02/14/18 07:23 Neutrophils # 5.0 k/uL (1.3-7.7) 02/14/18 07:23 Lymphocytes # 2.9 k/uL (1.0-4.8) 02/14/18 07:23 Monocytes # 0.5 k/uL (0-1.0) 02/14/18 07:23 Eosinophils # 0.1 k/uL (0-0.7) 02/14/18 07:23 Basophils # 0.1 k/uL (0-0.2) 02/14/18 07:23 Urine Color Yellow 02/13/18 19:55 Urine Appearance Clear (Clear) 02/13/18 19:55 Urine pH 7.5 (5.0-8.0) 02/13/18 19:[address] 1.024 (1.001-1.035) 02/13/18 19:55 Urine Protein Trace (Negative) H 02/13/18 19:55 Urine Glucose (UA) Negative (Negative) 02/13/18 19:55 Urine Ketones 1+ (Negative) H 02/13/18 19:55 Urine Blood Negative (Negative) 02/13/18 19:55 Urine Nitrite Negative (Negative) 02/13/18 19:55 Urine Bilirubin Negative (Negative) 02/13/18 19:55 Urine Urobilinogen 2.0 mg/dL (<2.0) 02/13/18 19:55 Ur Leukocyte Esterase Moderate (Negative) H 02/13/18 19:55 Urine RBC 2 /hpf (0-5) 02/13/18 19:55 Urine WBC 2 /hpf (0-5) 02/13/18 19:55 Ur Squamous Epith Cells 4 /hpf (0-4) 02/13/18 19:55 Amorphous Sediment Rare /hpf (None) H 02/13/18 19:55 Urine Mucus Few /hpf (None) H 02/13/18 19:55 Urine HCG, Qual Not Detected (Not Detectd) 02/13/18 15:00 Urine Opiates Screen Not Detected (NotDetected) 02/13/18 15:00 Ur Oxycodone Screen Not Detected (NotDetected) 02/13/18 15:00 Urine Methadone Screen Not Detected (NotDetected) 02/13/18 15:00 Ur Propoxyphene Screen Not Detected (NotDetected) 02/13/18 15:00 Ur Barbiturates Screen Not Detected (NotDetected) 02/13/18 15:00 U Tricyclic Antidepress Not Detected (NotDetected) 02/13/18 15:00 Ur Phencyclidine Scrn Not Detected (NotDetected) 02/13/18 15:00 Ur Amphetamines Screen Not Detected (NotDetected) 02/13/18 15:00 U Methamphetamines Scrn Not Detected (NotDetected) 02/13/18 15:00 U Benzodiazepines Scrn Not Detected (NotDetected) 02/13/18 15:00 Urine Cocaine Screen Not Detected (NotDetected) 02/13/18 15:00 U Marijuana (THC) Screen Detected (NotDetected) H 02/13/18 15:00 02/14/18 08:31 Assessment and Plan Assessment: She is a 27-year-old female who has a history of a depressive disorder. She presented to the mental health unit acutely distressed following an argument with her . She described a recurrence of depressive episode. She is denying suicidal ideation, plan or intent. She has marked anxiety, possible panic attacks and possible drug or phobia. There is no history suggestive of rommel or hypomania. She should be treated inpatient basis with combination of psychopharmacology and multimodal therapy. (1) Major depressive disorder, recurrent severe without psychotic features Current Visit: Yes Status: Acute Code(s): F33.2 - MAJOR DEPRESSV DISORDER, RECURRENT SEVERE W/O PSYCH FEATURES SNOMED Code(s): 25453377 (2) Panic disorder with agoraphobia, mild agoraphobic avoidance and mild panic attacks Current Visit: Yes Status: Acute Code(s): F40.01 - AGORAPHOBIA WITH PANIC DISORDER SNOMED Code(s): 70205639 Plan: Admitted to the psychiatric unit. Safety precautions. Consult medicine for initial physical exam and medical history. dry cure worker to complete psychosocial assessment. Begin Paxil 10 mg daily for treatment of depression and anxiety symptoms. dry cure worker to assist with aftercare services. Encourage participation in therapeutic groups and activities. Evaluate clinical status response to treatment daily basis.
[2018-02-14] MEDS: PARoxetine 10 MG TAB PO SCH (09:10)
--- NOTE | 2018-02-14 16:38 | P.PN ---
Subjective Progress Note Date: 02/14/18 Principal diagnosis: Major depressive disorder recurrent without psychotic features, panic disorder with agoraphobia, mild phobic avoidance and mild panic attacks. I reviewed the medical record, interviewed the patient and discuss her treatment and treatment plan during team meeting. She continues to deny that she had suicidal thoughts or wishes. She alleged that the admission nurses misunderstood her. She repeatedly requested to be discharged alleging that she does not belong in the hospital and she wishes to be with her children. She stated she feels less depressed and anxious. She denied side effects to initial dose of Paxil. Objective - Vital Signs Vital signs: Vital Signs Temp 98.2 F 02/14/18 06:25 Pulse 80 02/14/18 06:25 Resp 18 02/14/18 06:25 BP 150/79 02/14/18 06:25 Pulse Ox 99 02/13/18 16:54 Intake & Output 02/13/18 02/14/18 02/14/18 18:59 06:59 18:59 Weight 89.131 kg - Psychiatric Psychiatric Comment(s): She presented as a casually dressed and groomed anxious young woman who made eye contact and attended to the interview. She had a anxious facial expression. She was not restless, agitated or displayed psychomotor retardation. Her speech was spontaneous with normal rate, rhythm and volume. Affect was dysphoric but stable and appropriate. She denied suicidal ideation or wishes. She denied feeling hopeless, helpless or worthless. She denied ideas reference, paranoid ideation or delusional thoughts. Her thinking was abstract and associations were coherent and logical. She denied hallucinations and did not appear to be responding to internal stimuli. - Labs CBC & Chem 7: 02/14/18 07:23 02/14/18 07:23 Labs: Abnormal Lab Results - Last 24 Hours (Table) 02/13/18 Range/Units 19:55 Urine Protein Trace H (Negative) Urine Ketones 1+ H (Negative) Ur Leukocyte Esterase Moderate H (Negative) Amorphous Sediment Rare H (None) /hpf Urine Mucus Few H (None) /hpf Assessment and Plan Assessment: She experienced no adverse effect initial dose of the antidepressant. She is denying suicidal ideation and has displayed no suicidal thoughts or wishes during therapeutic groups and activities. Overall, she appears mild to moderately mentally ill and mentally improve from admission. (1) Major depressive disorder, recurrent severe without psychotic features Current Visit: Yes Status: Acute Code(s): F33.2 - MAJOR DEPRESSV DISORDER, RECURRENT SEVERE W/O PSYCH FEATURES SNOMED Code(s): 49161455 (2) Panic disorder with agoraphobia, mild agoraphobic avoidance and mild panic attacks Current Visit: Yes Status: Acute Code(s): F40.01 - AGORAPHOBIA WITH PANIC DISORDER SNOMED Code(s): 53391671 Plan: Continue inpatient hospitalization. Continue safety precautions. Continue Paxil 10 mg daily and titrated according to clinical response and tolerance. Consider discharge in 02/15/2018. animal nursery worker to coordinate aftercare services. Encourage continued participation in therapeutic groups and activities. Evaluate clinical status response to treatment on a daily basis.
[2018-02-15 06:56] VITALS: BP 122/79; PULSE 86; TEMP 98.3
[2018-02-15] MEDS: PARoxetine 10 MG TAB PO SCH (08:53)
--- NOTE | 2018-02-15 16:46 | P.DS ---
Providers Date of admission: 02/13/18 16:42 Attending physician: Rafi Menon Consults: 02/13/18 18:09 Consult Physician Routine Consulting Provider: Matty Gutierrez Consult Reason/Comments: follow up H & P Do you want consulting provider notified?: Yes Primary care physician: Quincy Busch - Discharge Diagnosis(es) (1) Major depressive disorder, recurrent severe without psychotic features Status: Acute (2) Panic disorder with agoraphobia, mild agoraphobic avoidance and mild panic attacks Status: Acute Hospital Course: The patient is a 27-year-old female admitted to the psychiatric unit voluntarily with complaints of depression and suicidal ideation. She described history of depression and increase in depression over 2 months prior to admission. On the day of admission she had a argument for her . He left the house ostensibly to give her "time to cool off". She followed him in her car. She was unable to explain why she ran after him or what she would do if she were to catch up with him. At one point she stopped following him and [place]. She was acutely distressed and called the mental health unit. On the advice of the nurse she presented to the emergency room. She denied that she told the EPS nurse that she thoughts of suicide or thought about "jumping into the river". We admitted her to the psychiatric unit under care of this publicity writer. Provided a biopsychosocial assessment. The applications consultant embossing toolsetter completed initial physical exam and medical history and diagnosed obesity, chronic marijuana use and chronic insomnia. We prescribed Paxil 10 mg daily for the treatment of depression and anxiety. She requested discharge as she arrived on the unit. She alleged that we have misinterpreted her and denied that she had thoughts of suicide. She admitted to depression and having depressive symptoms. Her mood brightened remarkably during this brief hospital stay. At the time of discharge she presented as a casually dressed and groomed young female who was pleasant on approach. She had a bright facial expression. She showed no abnormality of psychomotor activity. Her speech was spontaneous with normal rate, rhythm and volume. Her affect was bright and appropriate. She denied suicidal ideation, wishes or homicidal ideation. She denied feeling hopeless, helpless or worthless. She did not express ideas reference, paranoid ideation or delusions. Her thinking was abstract and associations were coherent and logical. She denied hallucinations and did not appear to be responding to internal stimuli. Patient Condition at Discharge: Good Plan - Discharge Summary Discharge Rx Participant: No New Discharge Prescriptions: New PARoxetine [Paxil] 10 mg PO DAILY #30 tab Discontinued ARIPiprazole [Abilify] 15 mg PO DAILY Discharge Medication List PARoxetine [Paxil] 10 mg PO DAILY #30 tab 02/15/18 [Rx] Follow up Appointment(s)/Referral(s): [facility] [Outside] - 02/20/18 12:30 pm (Follow up - Dmitri at [facility] SundayFebruary 20 @ 12:30p. Dmitri will schedule appointment for follow up with psychiatrist. ) Quincy Busch, [Primary Care Provider] - 1-2 days Patient Instructions/Handouts: Depression (DC), Suicide Prevention for Adults ( DC) Activity/Diet/Wound Care/Special Instructions: Keep your follow up appointment as scheduled and take medication as prescribed. Do not use any illegal drugs or drink alcohol. Remove any brandon from your home. Call the crisis line if needed [phone]. Discharge Disposition: HOME SELF-CARE
== END 2018-02-15 14:23 | disposition home or self-care (01) | DRG 885 ==
LOC: EC 14:41 → 3MHU 16:42
PROVIDERS: ADMIT Psychiatry & Neurology Psychiatry; ATTEND Psychiatry & Neurology Psychiatry
DX: F31.4 Bipolar disorder, current episode depressed, severe, without psychotic features (principal); R45.851 Suicidal ideations; G47.00 Insomnia, unspecified; J45.20 Mild intermittent asthma, uncomplicated; F40.01 Agoraphobia with panic disorder; E66.9 Obesity, unspecified; F90.9 Attention-deficit hyperactivity disorder, unspecified type; F12.90 Cannabis use, unspecified, uncomplicated; Z68.32 Body mass index [BMI] 32.0-32.9, adult; Z82.49 Family history of ischemic heart disease and other diseases of the circulatory system; Z79.899 Other long term (current) drug therapy
CPT/HCPCS: 80053; 80306; 81001; 81025; 82075; 84443; 85025; 99285

== ENCOUNTER 2018-02-21 19:57 | Emergency (ER) | payer BC, OTHER ==
[2018-02-21 20:23] VITALS: RESP 18
[2018-02-21] MEDS ORDERED: HYDROcodone/APAP 5-325MG 1 EACH TAB PO STA (20:56)
[2018-02-21] MEDS ORDERED: PHENAZOPYRIDINE 100 MG TAB PO STA (20:56)
[2018-02-21] MEDS ORDERED: ACYCLOVIR 800 MG TAB PO STA (21:38)
--- NOTE | 2018-02-21 21:39 | ED ---
Female Urogenital HPI - General Chief complaint: Urogenital Stated complaint: trouble urinating Time Seen by Provider: 02/21/18 20:31 Source: patient, RN notes reviewed, old records reviewed Mode of arrival: ambulatory Limitations: no limitations - History of Present Illness Initial comments: This patient's a 19-year-old female with recent history of dysuria. Patient reports that she was treated at which her [facility] for the past 2 days ago and was treated for multiple STDs at time. Patient reports that she has severe pain whenever she urinates. Last Menstrual Period: 02/21/18 - Related Data Previous Rx's Medication Instructions Recorded Acyclovir 400 mg PO TID 7 Days 02/21/18 HYDROcodone/APAP 5-325MG [[place] 1 tab PO Q6HR PRN 3 Days #12 tab 02/21/18 5-325] Phenazopyridine HCl [Pyridium] 100 mg PO TID #9 tab 02/21/18 Sulfamethoxazole/Trimethoprim 1 each PO BID #10 tablet 02/21/18 [Bactrim DS 800-160 mg] Allergies Allergy/AdvReac Type Severity Reaction Status Date / Time No Known Allergies Allergy Verified 02/21/18 22:38 Review of Systems ROS Statement: Those systems with pertinent positive or pertinent negative responses have been documented in the HPI. ROS Other: All systems not noted in ROS Statement are negative. Past Medical History Past Medical History: Asthma History of Any Multi-Drug Resistant Organisms: None Reported Past Surgical History: No Surgical Hx Reported Additional Past Surgical History / Comment(s): cerclage with 2nd Past Anesthesia/Blood Transfusion Reactions: No Reported Reaction Past Psychological History: Anxiety, Bipolar Smoking Status: Former smoker Past Alcohol Use History: None Reported Past Drug Use History: None Reported - Past Family History Mother Family Medical History: Hyperlipidemia, Hypertension Additional Family Medical History / Comment(s): bipolar and anxiety General Exam - General Exam Comments Initial Comments: 27-year-old female. Limitations: no limitations General appearance: alert, in no apparent distress Head exam: Present: atraumatic, normocephalic, normal inspection Eye exam: Present: normal appearance, PERRL, EOMI. Absent: scleral icterus, conjunctival injection, periorbital swelling ENT exam: Present: normal exam, mucous membranes moist Neck exam: Present: normal inspection. Absent: tenderness, meningismus, lymphadenopathy Respiratory exam: Present: normal lung sounds bilaterally. Absent: respiratory distress, wheezes, rales, rhonchi, stridor Cardiovascular Exam: Present: regular rate, normal rhythm, normal heart sounds. Absent: systolic murmur, diastolic murmur, rubs, gallop, clicks GI/Abdominal exam: Present: soft, normal bowel sounds. Absent: distended, tenderness, guarding, rebound, rigid External exam: Present: lesions (And is multiple ulcerations over her labia majora.). Absent: normal external exam Course Vital Signs 02/21/18 02/21/18 20:21 22:44 Temperature 98.7 F 97.4 F L Pulse Rate 89 87 Respiratory 18 18 Rate Blood Pressure 121/75 124/87 O2 Sat by Pulse 100 99 Oximetry Medical Decision Making - Medical Decision Making 27 year old female presents with dysuria. REcently treated for PID by [facility] this week. She has evidence of Herpes lesions over labia. She also has a severe UTI. She was treated already with rocephin, azith and flagyl. REcorrds from [facility] show negative chlamydia, gonorrhea, and trich testing. Her UA was normal at that time. Today a urine culture is obtained. Patient will be treated for HSV infection with acyclyvir and bactrim for UTI. Discussed [employer] ADVERTISING CLERK follow up. Return parameters discussed. - Lab Data Lab Results 02/21/18 Range/Units 21:40 Urine Color Dark Brown Urine Appearance Cloudy H (Clear) Urine pH 5.5 (5.0-8.0) Ur Specific [place] 1.026 (1.001-1.035) Urine Protein 2+ H (Negative) Urine Glucose (UA) Negative (Negative) Urine Ketones Negative (Negative) Urine Blood Small H (Negative) Urine Nitrite Positive H (Negative) Urine Bilirubin 1+ H (Negative) Urine Urobilinogen 4.0 (<2.0) mg/dL Ur Leukocyte Esterase Moderate H (Negative) Urine RBC 87 H (0-5) /hpf Urine WBC 125 H (0-5) /hpf Ur Squamous Epith Cells 11 H (0-4) /hpf Urine Bacteria Few H (None) /hpf Urine Mucus Many H (None) /hpf Disposition Clinical Impression: Herpes genitalia, UTI (urinary tract infection) Disposition: HOME SELF-CARE Condition: Good Instructions: Genital Herpes Simplex (ED), Urinary Tract Infection in Women (ED ) Additional Instructions: Patient advised to follow-up with primary care physician and CLASSIFIED ADVERTISING CLERK. Return to the emergency department if any alarming signs or symptoms occur. Prescriptions: Acyclovir 400 mg PO TID 7 Days HYDROcodone/APAP 5-325MG [[place] 5-325] 1 tab PO Q6HR PRN 3 Days #12 tab PRN Reason: Pain Phenazopyridine HCl [Pyridium] 100 mg PO TID #9 tab Sulfamethoxazole/Trimethoprim [Bactrim DS 800-160 mg] 1 each PO BID #10 tablet Is patient prescribed a controlled substance at d/c from ED?: Yes When asked, does pt state using other controlled substances?: No If prescribed controlled substance>3 days was MAPS reviewed?: Prescribed <3 Days If opioid is for acute pain is fill amount 7 days or less?: Yes If Rx opioid, was Start Talking consent form obtained?: No Referrals: Quincy Busch DO [Primary Care Provider] - 1-2 days Time of Disposition: 22:30
[2018-02-21 21:55] LABS: Appearance,Urine Cloudy (Clear); Bacteria,Urine Few /hpf; Bilirubin,Urine 1+ (Negative); Blood,Urine Small (Negative); Color,Urine Dark Brown; Glucose,Urine (UA) Negative (Negative); Ketones,Urine Negative (Negative); Leukocyte Esterase,Urine Moderate (Negative); Mucus,Urine Many /hpf; Nitrite,Urine Positive (Negative); PH, Urine 5.5 (5.0-8.0); Protein,Urine 2+ (Negative); RBC,Urine 87 /hpf (0-5); Specific Gravity,Urine 1.026 (1.001-1.035); Squamous Epithelial Cell,Urine 11 /hpf (0-4); WBC,Urine 125 /hpf (0-5)
[2018-02-21] MEDS ORDERED: SULFAMETH-TMP DS STARTER PACK 2 TAB BTL PO STA (21:58)
[2018-02-21 22:50] VITALS: BP 124/87; PULSE 87; TEMP 97.4
== END 2018-02-21 22:50 | disposition home or self-care (01) ==
LOC: EC 19:57
DX: A60.09 Herpesviral infection of other urogenital tract (principal); N39.0 Urinary tract infection, site not specified; Z87.891 Personal history of nicotine dependence
CPT/HCPCS: 81001; 99284

== ENCOUNTER 2018-02-24 21:38 | Emergency (ER) | payer BC, OTHER ==
[2018-02-24 22:03] VITALS: RESP 18
[2018-02-24 23:01] VITALS: TEMP 99.5
[2018-02-24] MEDS ORDERED: ONDANSETRON 4 MG/2 ML VIAL IVP STA (23:01)
[2018-02-24] MEDS ORDERED: KETOROLAC 30 MG/ML 1 ML VIAL IVP STA (23:01)
[2018-02-24] MEDS ORDERED: SODIUM CHLORIDE 0.9% 1,000 ML IV STA ×2 (23:01)
[2018-02-24] MEDS ORDERED: MAGNESIUM CITRATE 296 ML BOTTLE PO ONE (23:02)
--- NOTE | 2018-02-24 23:03 | ED ---
Abdominal Pain HPI - General Chief Complaint: Abdominal Pain Stated Complaint: no bowel movement Time Seen by Provider: 02/24/18 22:39 Source: patient, RN notes reviewed, old records reviewed Mode of arrival: ambulatory Limitations: no limitations - History of Present Illness Initial Comments: Patient is 19-year-old female presents emergency department today chief complaint of abdominal pain due to lack of bowel movement for the past 10 days. She reports that she was recently diagnosed with urinary tract Infection. Has been taking Cipro. She states that she has been having some back pain. No fevers chills. No vomiting. Urinary symptoms are subsiding since taking antibiotics. Denies any other symptoms at this time. - Related Data Previous Rx's Medication Instructions Recorded Acyclovir 400 mg PO TID 7 Days 02/21/18 HYDROcodone/APAP 5-325MG [[place] 1 tab PO Q6HR PRN 3 Days #12 tab 02/21/18 5-325] Phenazopyridine HCl [Pyridium] 100 mg PO TID #9 tab 02/21/18 Sulfamethoxazole/Trimethoprim 1 each PO BID #10 tablet 02/21/18 [Bactrim DS 800-160 mg] Bisacodyl [Dulcolax] 10 mg PO DAILY #20 tablet. 02/25/18 Allergies Allergy/AdvReac Type Severity Reaction Status Date / Time No Known Allergies Allergy Verified 02/24/18 22:03 Review of Systems ROS Statement: Those systems with pertinent positive or pertinent negative responses have been documented in the HPI. ROS Other: All systems not noted in ROS Statement are negative. Past Medical History Past Medical History: Asthma History of Any Multi-Drug Resistant Organisms: None Reported Past Surgical History: No Surgical Hx Reported Additional Past Surgical History / Comment(s): cerclage with 2nd Past Anesthesia/Blood Transfusion Reactions: No Reported Reaction Past Psychological History: Anxiety, Bipolar Smoking Status: Former smoker Past Alcohol Use History: None Reported Past Drug Use History: None Reported - Past Family History Mother Family Medical History: Hyperlipidemia, Hypertension Additional Family Medical History / Comment(s): bipolar and anxiety General Exam - General Exam Comments Initial Comments: Well-appearing 19-year-old female. Alert and oriented. No significant distress. General: Well appearing, well nourished, in no distress. Oriented x 3, normal mood and affect . Ambulating without difficulty. Skin: Good turgor, no rash, unusual bruising or prominent lesions Hair: Normal texture and distribution. HEENT: Head: Normocephalic, atraumatic, no visible or palpable masses, depressions, or scaring. Eyes: Visual acuity intact, conjunctiva clear, sclera non-icteric, EOM intact, PERRL. Ears: EACs clear, TMs translucent & cone of light visualized. hearing intact. Nose: No external lesions, mucosa non-inflamed, septum and turbinates normal Mouth: Mucous membranes moist, no mucosal lesions. Teeth/Gums: No obvious caries or periodontal disease. No gingival inflammation or significant resorption. Pharynx: Mucosa non-inflamed, no tonsillar hypertrophy or exudate Neck: Supple, without lesions, bruits, or adenopathy, thyroid non-enlarged and non-tender Heart: No cardiomegaly or thrills; regular rate and rhythm, no murmur or gallop Lungs: Clear to auscultation and percussion Abdomen: Bowel sounds normal, no tenderness, organomegaly, masses, or hernia Back: Right CVA tenderness. Extremities: No amputations or deformities, cyanosis, edema or varicosities, peripheral pulses intact Musculoskeletal: Normal gait and station. No misalignment, asymmetry, crepitation, defects, tenderness, masses, effusions, decreased range of motion, instability, atrophy or abnormal strength or tone in the head, neck, spine, ribs , pelvis or extremities. Neurologic: CN 2-12 normal. Sensation to pain, touch, and proprioception normal. DTRs normal in upper and lower extremities. No pathologic reflexes. Psychiatric: Oriented X3, intact recent and remote memory, judgment and insight , normal mood and affect. Limitations: no limitations Course Vital Signs 02/24/18 02/24/18 02/25/18 22:01 23:01 01:02 Temperature 98.9 F 99.5 F Pulse Rate 81 72 Respiratory 18 18 Rate Blood Pressure 135/78 128/68 O2 Sat by Pulse 100 98 Oximetry Medical Decision Making - Medical Decision Making Patient's a 19-year-old female complains of abdominal fullness like a bowel movement for 10 days. Complains of back pain. Recently treated for urinary tract infection. Patient's urinalysis this time appears much better compared to 2 days ago. Urinary tract infection is resolving. She does have a few days left of the antibiotic. Patient's white blood cell count is within normal limits. Kidney function is normal. KUB shows moderate stool burn and however no significant constipation. She was given magnesium citrate and there are Emergency Room. She Does Feel Better after Having a Bowel Movement. I Discussed Her Pain Is Likely Related to Excessive Stool Reading. Patient Agrees. I Discussed Return Parameters. All Questions Answered. She'll Follow up with Primary Care Provider Given Discharged with Stool Softeners and Continuing Her Previously Prescribed Antibiotics. - Lab Data Result diagrams: 02/24/18 23:23 02/24/18 23:23 Lab Results 02/24/18 02/24/18 02/24/18 Range/Units 23:23 23:23 23:23 WBC 6.6 (3.8-10.6) k/uL RBC 4.51 (3.80-5.40) m/uL Hgb 11.7 (11.4-16.0) gm/dL Hct 35.4 (34.0-46.0) % MCV 78.5 L (80.0-100.0) fL MCH 26.0 (25.0-35.0) pg MCHC 33.1 (31.0-37.0) g/dL RDW 14.8 (11.5-15.5) % Plt Count 248 (150-450) k/uL Neutrophils % 44 % Lymphocytes % 46 % Monocytes % 4 % Eosinophils % 2 % Basophils % 1 % Neutrophils # 2.9 (1.3-7.7) k/uL Lymphocytes # 3.0 (1.0-4.8) k/uL Monocytes # 0.3 (0-1.0) k/uL Eosinophils # 0.1 (0-0.7) k/uL Basophils # 0.1 (0-0.2) k/uL Sodium 139 (137-145) mmol/L Potassium 3.9 (3.5-5.1) mmol/L Chloride 104 (98-107) mmol/L Carbon Dioxide 23 (22-30) mmol/L Anion Gap 12 mmol/L BUN 13 (7-17) mg/dL Creatinine 0.90 (0.52-1.04) mg/dL Est GFR (CKD-EPI)AfAm >90 (>60 ml/min/1.73 sqM) Est GFR (CKD-EPI)NonAf 88 (>60 ml/min/1.73 sqM) Glucose 90 (74-99) mg/dL Calcium 9.8 (8.4-10.2) mg/dL Total Bilirubin 0.2 (0.2-1.3) mg/dL AST 23 (14-36) U/L ALT 32 (9-52) U/L Alkaline Phosphatase 38 (38-126) U/L Total Protein 7.2 (6.3-8.2) g/dL Albumin 4.6 (3.5-5.0) g/dL Amylase 64 (30-110) U/L Lipase 141 (23-300) U/L Urine Color Dark Brown Urine Appearance Clear (Clear) Urine pH 6.5 (5.0-8.0) Ur Specific [place] 1.016 (1.001-1.035) Urine Protein Negative (Negative) Urine Glucose (UA) Negative (Negative) Urine Ketones Negative (Negative) Urine Blood Negative (Negative) Urine Nitrite Positive H (Negative) Urine Bilirubin 2+ H (Negative) Urine Urobilinogen 6.0 (<2.0) mg/dL Ur Leukocyte Esterase Small H (Negative) Urine RBC 1 (0-5) /hpf Urine WBC 7 H (0-5) /hpf Ur Squamous Epith Cells 2 (0-4) /hpf Urine Bacteria Rare H (None) /hpf Urine Mucus Rare H (None) /hpf - Radiology Data Radiology results: report reviewed KUB shows mild gas pattern. No significant changes. Disposition Clinical Impression: Constipation Disposition: HOME SELF-CARE Condition: Good Instructions: Constipation (ED) Additional Instructions: Patient has increased fluid intake. Continue the previously prescribed antibiotics. Follow-up with primary care physician within the next 1-2 days. Use a stool softeners as well. Return to the emergency department if any alarming signs or symptoms occur. Prescriptions: Bisacodyl [Dulcolax] 10 mg PO DAILY #20 tablet.dr Is patient prescribed a controlled substance at d/c from ED?: No When asked, does pt state using other controlled substances?: No If prescribed controlled substance>3 days was MAPS reviewed?: No If opioid is for acute pain is fill amount 7 days or less?: No If Rx opioid, was Start Talking consent form obtained?: No Referrals: Quincy Busch DO [Primary Care Provider] - 1-2 days Time of Disposition: 01:05
--- NOTE | 2018-02-24 23:42 | XR ---
EXAMINATION TYPE: XR KUB DATE OF EXAM: 02/24/2018 COMPARISON: 07/26/2012 HISTORY: Urinary tract infection. Constipation. TECHNIQUE: 2 views FINDINGS: 2 upright views show no sign of intestinal obstruction or pneumoperitoneum. Fecal pattern i s normal. Lung bases are clear. There are no pathologic calcifications. IMPRESSION: Nonacute abdomen. No change. No sign of constipation.
[2018-02-24 23:44] LABS: Basophils # (A) 0.1 k/uL (0-0.2); Basophils % (A) 1 %; Eosinophils # (A) 0.1 k/uL (0-0.7); Eosinophils % (A) 2 %; HCT 35.4 % (34.0-46.0); HGB 11.7 gm/dL (11.4-16.0); Lymphocytes % (A) 46 %; MCHC 33.1 g/dL (31.0-37.0); MCV 78.5 fL (80.0-100.0); Mean Platelet Volume 7.7; Monocytes # (A) 0.3 k/uL (0-1.0); Monocytes % (A) 4 %; Neutrophils # (A) 2.9 k/uL (1.3-7.7); Neutrophils % (A) 44 %; Platelet Count 248 k/uL (150-450); RBC 4.51 m/uL (3.80-5.40); RDW 14.8 % (11.5-15.5); WBC 6.6 k/uL (3.8-10.6)
[2018-02-24 23:48] LABS: Appearance,Urine Clear (Clear); Bacteria,Urine Rare /hpf; Bilirubin,Urine 2+ (Negative); Blood,Urine Negative (Negative); Color,Urine Dark Brown; Glucose,Urine (UA) Negative (Negative); Ketones,Urine Negative (Negative); Leukocyte Esterase,Urine Small (Negative); Mucus,Urine Rare /hpf; Nitrite,Urine Positive (Negative); PH, Urine 6.5 (5.0-8.0); Protein,Urine Negative (Negative); RBC,Urine 1 /hpf (0-5); Specific Gravity,Urine 1.016 (1.001-1.035); Squamous Epithelial Cell,Urine 2 /hpf (0-4); WBC,Urine 7 /hpf (0-5)
[2018-02-25 00:01] LABS: ALT 32 U/L (9-52); AST 23 U/L (14-36); Albumin 4.6 g/dL (3.5-5.0); Alkaline Phosphatase 38 U/L (38-126); Amylase 64 U/L (30-110); Anion Gap 12 mmol/L; Blood Urea Nitrogen 13 mg/dL (7-17); Calcium 9.8 mg/dL (8.4-10.2); Carbon Dioxide 23 mmol/L (22-30); Chloride 104 mmol/L (98-107); Glucose 90 mg/dL (74-99); Lipase 141 U/L (23-300); Potassium 3.9 mmol/L (3.5-5.1); Sodium 139 mmol/L (137-145); Total Bilirubin 0.2 mg/dL (0.2-1.3); Total Protein 7.2 g/dL (6.3-8.2)
[2018-02-25] MEDS ORDERED: DOCUSATE 283 MG/5 ML ENEMA RECTAL STA (00:12)
[2018-02-25 01:03] VITALS: BP 128/68; PULSE 72
== END 2018-02-25 02:00 | disposition home or self-care (01) ==
LOC: EC 21:38
DX: Z87.891 Personal history of nicotine dependence (principal)
CPT/HCPCS: 36415; 80053; 82150; 83690; 85025; 81001; 87086; 74018; 99284; 96374; 96375; 96361; J2405; J1885

== ENCOUNTER 2018-09-15 00:17 | Emergency (ER) | payer BC, OTHER ==
[2018-09-15 00:52] VITALS: TEMP 98.7
[2018-09-15] MEDS ORDERED: diphenhydrAMINE 50 MG/ML 1 ML VIAL IVP STA (00:53)
[2018-09-15] MEDS ORDERED: SODIUM CHLORIDE 0.9% 500 ML 500 ML IV STA (00:53)
[2018-09-15] MEDS ORDERED: PYRIDOXINE 100 MG/ML 1 ML VIAL IVP STA (00:53)
[2018-09-15] MEDS ORDERED: SODIUM CHLORIDE 0.9% 1,000 ML IV STA ×2 (00:53)
--- NOTE | 2018-09-15 00:55 | ED ---
Nausea/Vomiting/Diarrhea HPI - General Chief complaint: Nausea/Vomiting/Diarrhea Stated complaint: 18 weeks Severe Nausea Source: patient, RN notes reviewed, old records reviewed Mode of arrival: ambulatory Limitations: no limitations - History of Present Illness Initial comments: This is a 28 female the ER for evaluation of nausea vomiting and known 18 weeks . Patient does have mild underlying psychiatric illness. Did not taking any current medication. Not taking any current nausea medication. No fevers no abdominal pain no chest pain or shortness of breath. No recent episodes of diarrhea or known sick contacts and travel history MD complaint: nausea, vomiting -: days(s) Description of Vomiting: food contents Description of Diarrhea: other (None) Associated Abdominal Pain: No Radiation: none Severity: mild Severity scale (1-10): 4 (Episodes) Improves with: none Worsens with: eating, vomiting Associated Symptoms: nausea/vomiting - Related Data Previous Rx's Medication Instructions Recorded Acyclovir 400 mg PO TID 7 Days 02/21/18 HYDROcodone/APAP 5-325MG [[place] 1 tab PO Q6HR PRN 3 Days #12 tab 02/21/18 5-325] Phenazopyridine HCl [Pyridium] 100 mg PO TID #9 tab 02/21/18 Sulfamethoxazole/Trimethoprim 1 each PO BID #10 tablet 02/21/18 [Bactrim DS 800-160 mg] Bisacodyl [Dulcolax] 10 mg PO DAILY #20 tablet. 02/25/18 Allergies Allergy/AdvReac Type Severity Reaction Status Date / Time No Known Allergies Allergy Verified 09/15/18 00:51 Review of Systems ROS Statement: Those systems with pertinent positive or pertinent negative responses have been documented in the HPI. ROS Other: All systems not noted in ROS Statement are negative. Past Medical History Past Medical History: Asthma History of Any Multi-Drug Resistant Organisms: None Reported Past Surgical History: No Surgical Hx Reported Additional Past Surgical History / Comment(s): cerclage with 2nd Past Anesthesia/Blood Transfusion Reactions: No Reported Reaction Past Psychological History: Anxiety, Bipolar Smoking Status: Former smoker Past Alcohol Use History: None Reported Past Drug Use History: None Reported - Past Family History Mother Family Medical History: Hyperlipidemia, Hypertension Additional Family Medical History / Comment(s): bipolar and anxiety General Exam Limitations: no limitations General appearance: alert, in no apparent distress Head exam: Present: atraumatic, normocephalic, normal inspection Eye exam: Present: normal appearance, PERRL, EOMI. Absent: scleral icterus, conjunctival injection, periorbital swelling ENT exam: Present: normal exam, mucous membranes moist Neck exam: Present: normal inspection. Absent: tenderness, meningismus, lymphadenopathy Respiratory exam: Present: normal lung sounds bilaterally. Absent: respiratory distress, wheezes, rales, rhonchi, stridor Cardiovascular Exam: Present: regular rate, normal rhythm, normal heart sounds. Absent: systolic murmur, diastolic murmur, rubs, gallop, clicks GI/Abdominal exam: Present: soft, normal bowel sounds. Absent: distended, tenderness, guarding, rebound, rigid Extremities exam: Present: normal inspection, full ROM, normal capillary refill. Absent: tenderness, pedal edema, joint swelling, calf tenderness Back exam: Present: normal inspection Neurological exam: Present: alert, oriented X3, CN II-XII intact Psychiatric exam: Present: normal affect, normal mood Skin exam: Present: warm, dry, intact, normal color. Absent: rash Course Vital Signs 09/15/18 09/15/18 00:48 02:30 Temperature 98.7 F Pulse Rate 80 78 Respiratory 18 16 Rate Blood Pressure 114/62 111/59 O2 Sat by Pulse 98 100 Oximetry Medical Decision Making - Medical Decision Making Plan I female the ER for evaluation nausea vomiting and . Patient feeling improved here in the ER with normal flexion and lites can be discharged home - Lab Data Result diagrams: 09/15/18 01:14 09/15/18 01:14 Lab Results 09/15/18 09/15/18 09/15/18 Range/Units 01:14 01:14 01:14 WBC 10.1 (3.8-10.6) k/uL RBC 4.06 (3.80-5.40) m/uL Hgb 11.3 L (11.4-16.0) gm/dL Hct 33.3 L (34.0-46.0) % MCV 82.1 (80.0-100.0) fL MCH 28.0 (25.0-35.0) pg MCHC 34.1 (31.0-37.0) g/dL RDW 14.1 (11.5-15.5) % Plt Count 218 (150-450) k/uL Neutrophils % 64 % Lymphocytes % 27 % Monocytes % 5 % Eosinophils % 2 % Basophils % 0 % Neutrophils # 6.4 (1.3-7.7) k/uL Lymphocytes # 2.7 (1.0-4.8) k/uL Monocytes # 0.5 (0-1.0) k/uL Eosinophils # 0.2 (0-0.7) k/uL Basophils # 0.0 (0-0.2) k/uL Sodium 136 L (137-145) mmol/L Potassium 4.0 (3.5-5.1) mmol/L Chloride 107 (98-107) mmol/L Carbon Dioxide 22 (22-30) mmol/L Anion Gap 7 mmol/L BUN 10 (7-17) mg/dL Creatinine 0.47 L (0.52-1.04) mg/dL Est GFR (CKD-EPI)AfAm >90 (>60 ml/min/1.73 sqM) Est GFR (CKD-EPI)NonAf >90 (>60 ml/min/1.73 sqM) Glucose 93 (74-99) mg/dL Calcium 8.9 (8.4-10.2) mg/dL Total Bilirubin 0.3 (0.2-1.3) mg/dL AST 14 (14-36) U/L ALT 21 (9-52) U/L Alkaline Phosphatase 29 L (38-126) U/L Total Protein 5.9 L (6.3-8.2) g/dL Albumin 3.2 L (3.5-5.0) g/dL Urine Color Yellow Urine Appearance Clear (Clear) Urine pH 6.5 (5.0-8.0) Ur Specific [place] 1.015 (1.001-1.035) Urine Protein Negative (Negative) Urine Glucose (UA) Negative (Negative) Urine Ketones Negative (Negative) Urine Blood Negative (Negative) Urine Nitrite Negative (Negative) Urine Bilirubin Negative (Negative) Urine Urobilinogen <2.0 (<2.0) mg/dL Ur Leukocyte Esterase Large H (Negative) Urine WBC 3 (0-5) /hpf Ur Squamous Epith Cells 1 (0-4) /hpf Urine Bacteria Rare H (None) /hpf Disposition Clinical Impression: Nausea & vomiting Disposition: HOME SELF-CARE Condition: Good Instructions (If sedation given, give patient instructions): Acute Nausea and Vomiting (ED) Is patient prescribed a controlled substance at d/c from ED?: No Referrals: Quincy Busch DO [Primary Care Provider] - 1-2 days
[2018-09-15 01:23] LABS: Basophils % (A) 0 %; Eosinophils # (A) 0.2 k/uL (0-0.7); Eosinophils % (A) 2 %; HCT 33.3 % (34.0-46.0); HGB 11.3 gm/dL (11.4-16.0); Lymphocytes # (A) 2.7 k/uL (1.0-4.8); Lymphocytes % (A) 27 %; MCHC 34.1 g/dL (31.0-37.0); MCV 82.1 fL (80.0-100.0); Monocytes # (A) 0.5 k/uL (0-1.0); Monocytes % (A) 5 %; Neutrophils # (A) 6.4 k/uL (1.3-7.7); Neutrophils % (A) 64 %; Platelet Count 218 k/uL (150-450); RBC 4.06 m/uL (3.80-5.40); RDW 14.1 % (11.5-15.5); WBC 10.1 k/uL (3.8-10.6)
[2018-09-15 01:31] LABS: ALT 21 U/L (9-52); AST 14 U/L (14-36); Albumin 3.2 g/dL (3.5-5.0); Alkaline Phosphatase 29 U/L (38-126); Anion Gap 7 mmol/L; Blood Urea Nitrogen 10 mg/dL (7-17); Calcium 8.9 mg/dL (8.4-10.2); Carbon Dioxide 22 mmol/L (22-30); Chloride 107 mmol/L (98-107); Glucose 93 mg/dL (74-99); Sodium 136 mmol/L (137-145); Total Bilirubin 0.3 mg/dL (0.2-1.3); Total Protein 5.9 g/dL (6.3-8.2)
[2018-09-15 01:34] LABS: Appearance,Urine Clear (Clear); Bacteria,Urine Rare /hpf; Bilirubin,Urine Negative (Negative); Blood,Urine Negative (Negative); Color,Urine Yellow; Glucose,Urine (UA) Negative (Negative); Ketones,Urine Negative (Negative); Leukocyte Esterase,Urine Large (Negative); Nitrite,Urine Negative (Negative); PH, Urine 6.5 (5.0-8.0); Protein,Urine Negative (Negative); Specific Gravity,Urine 1.015 (1.001-1.035); Squamous Epithelial Cell,Urine 1 /hpf (0-4); Urobilinogen,Urine <2.0 mg/dL (<2.0)
[2018-09-15 02:31] VITALS: BP 111/59; PULSE 78; RESP 16
== END 2018-09-15 02:31 | disposition home or self-care (01) ==
LOC: EC 00:17
DX: O21.9 Vomiting of pregnancy, unspecified (principal); Z3A.18 18 weeks gestation of pregnancy; Z87.891 Personal history of nicotine dependence
CPT/HCPCS: 36415; 80053; 85025; 81001; 99284; 96374; 96375; 96361; J1200; J3415

== ENCOUNTER 2018-10-20 04:12 | Observation (INO) | payer BC, OTHER ==
[2018-10-20] MEDS ORDERED: ACETAMINOPHEN TAB 325 MG TAB PO PRN (05:08)
[2018-10-20 06:30] VITALS: BMI 31.1
--- NOTE | 2018-10-20 07:03 | US ---
EXAMINATION TYPE: US OB >= 14 wk fetus DATE OF EXAM: 10/20/2018 COMPARISON: None CLINICAL HISTORY: trauma/possible rupture of membranes TECHNIQUE: Transabdominal (TA) scanning. Limited transvaginal scanning for cervical length. GESTATIONAL AGE / DATING Physician Established: (22 weeks/5 days) EDC: 02/18/2019 Dates by First Scan: No previous scan here Dates by Current Scan: (22 weeks/5 days) EDC: 02/18/2019 Beta HCG (if available): NA SURVEY IUP: Single PLACENTA: fundal posterior, suspected venous gould upper placenta. Measures about 13 mm in maximum dimension. PREVIA: No Previa 4 quadrant MARILEE: 17.8 cm (Normal) CERVICAL LENGTH (transabdominal: norm > 3.0cm): not well seen TA thus TV US CERVICAL LENGTH (transvaginal: norm> 2.5cm): 3.2 cm (Supplemental transvaginal imaging performed to verify cervical length.) BIOMETRY PRESENTATION: Vertex LIE: Longitudinal BPD: 5.8 cm 23 weeks / 5 days HC: 21.2 cm 23 weeks / 2 days AC: 17.8 cm 22 weeks / 4 days FL: 3.9 cm 22 weeks / 5 days ESTIMATED WEIGHT IN GRAMS: 531.5 grams ESTIMATED WEIGHT IN LBS/OZ: 1 lbs. 3 oz. WEIGHT PERCENTAGE BASED ON ESTABLISHED DATES: 44.7% HC/AC: 1.19 Normal FL/AC: 22.15 Normal HEART RATE: 144 bpm RHYTHM: Normal IMPRESSION: Single, live IUP, as above. Normal MARILEE. Suspected placental gould measuring about 13 mm in maximum dimension. Bleed considered less likely. Could obtain short-term interval follow-up exam to reassess, as indicated.
[2018-10-20 08:54] VITALS: BP 94/45; PULSE 88; RESP 17; TEMP 98.6
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
== END 2018-10-20 11:27 | disposition home or self-care (01) ==
LOC: EEVIPCON 04:12 → FBPOP 04:12 → 4FBP 05:10
PROVIDERS: ADMIT Obstetrics & Gynecology Obstetrics; ATTEND Obstetrics & Gynecology Obstetrics
DX: O9A.312 Physical abuse complicating pregnancy, second trimester (principal); O99.112 Other diseases of the blood and blood-forming organs and certain disorders involving the immune mechanism complicating pregnancy, second trimester; D68.59 Other primary thrombophilia; O99.512 Diseases of the respiratory system complicating pregnancy, second trimester; J45.909 Unspecified asthma, uncomplicated; O99.342 Other mental disorders complicating pregnancy, second trimester; F31.9 Bipolar disorder, unspecified; F41.9 Anxiety disorder, unspecified; F60.3 Borderline personality disorder; Z87.51 Personal history of pre-term labor; Z3A.22 22 weeks gestation of pregnancy; Z79.82 Long term (current) use of aspirin; Z82.49 Family history of ischemic heart disease and other diseases of the circulatory system; Z83.49 Family history of other endocrine, nutritional and metabolic diseases; Z81.8 Family history of other mental and behavioral disorders; Y04.8XXA Assault by other bodily force, initial encounter
CPT/HCPCS: 99213; 76805; 76817; G0378

== ENCOUNTER 2018-11-09 23:55 | Outpatient (CLI) | payer BC, OTHER ==
[2018-11-10 00:59] LABS: Appearance,Urine Cloudy (Clear); Bilirubin,Urine Negative (Negative); Blood,Urine Negative (Negative); Color,Urine Yellow; Glucose,Urine (UA) Negative (Negative); Ketones,Urine 1+ (Negative); Leukocyte Esterase,Urine Moderate (Negative); Mucus,Urine Many /hpf; Nitrite,Urine Negative (Negative); PH, Urine 5.5 (5.0-8.0); Protein,Urine Trace (Negative); RBC,Urine 1 /hpf (0-5); Specific Gravity,Urine 1.031 (1.001-1.035); Squamous Epithelial Cell,Urine 3 /hpf (0-4)
[2018-11-10 01:00] VITALS: BP 131/76; PULSE 87; RESP 16; TEMP 97.2
--- NOTE | 2018-11-15 11:31 | P.MSEPDOC ---
Presenting Problems - Arrival Data Date of Arrival on Unit: 11/10/18 Time of Arrival on Unit: 23:58 Mode of Transport: Ambulatory - Complaint OB-Reason for Admission/Chief Complaint: Possible Onset of Labor Comment: pt states feeling tightening since 1500 Medical History - Information : 7 Para: 4 Term: 3 : 1 Abortions: Spontaneous or Elective: 2 Number of Living Children: 4 - Gestational Age Gestational Age by JILL (wks/days): 25 Weeks and 5 Days - History Complications: Prior Review of Systems - Review of Systems Constitutional: No problems Breast: No problems ENT: No problems Cardiovascular: No problems Respiratory: No problems Gastrointestinal: No problems Genitourinary: No problems Musculoskeletal: No problems Neurological: No problems Skin: No problems Vital Signs - Temperature Temperature: 97.2 F Temperature Source: Temporal Artery Scan - Pulse Right Brachial Pulse Rate: 87 Pulse Assessment Method: Automatic Cuff - Respirations Respiratory Rate: 16 Oxygen Delivery Method: Room Air - Blood Pressure Right Arm Blood Pressure: 131/76 Blood Pressure Mean: 94 Blood Pressure Source: Automatic Cuff Medical Screen Scoring (Pre) - Cervical Exam Dilation: Exam Deferred Effacement: Exam Deferred Membranes: Intact - Uterine Contractions Frequency: N/A Duration: N/A Intensity: N/A - Maternal Vital Signs Maternal Temperature: N/A Maternal Blood Pressure: N/A Signs of Preeclampsia: N/A Maternal Respirations: N/A - Maternal Trauma Maternal Trauma: N/A - Assessment Baseline FHR: 140 Heart Rate - NICHD Category: Category I (Normal) = 0 Position: N/A Station: N/A - Total Score Total Score (Pre): 0 - Level of Risk Level of Risk: Low (0-5) Physician Notification (Pre) - Physician Notified Physician Notified Date: 11/10/18 Physician Notified Time: 00:34 Spoke With: Karrie New Order Received: Yes - Notification Comment Comment: send UA, if no infection and no tracing contractions then discharge to home Physician Notification (Post) - Physician Notified Physician Notified Date: 11/10/18 Physician Notified Time: 01:04 Spoke With: karrie New Order Received: Yes (UA results read wnl, d/c) Disposition - Disposition OB Disposition: Discharge to home, Written follow up instructions reviewed Discharge Date: 11/10/18 Discharge Time: 01:10 I agree with the RN Medical Screening Exam: Yes Risk & Benefit of care provided described in d/c instruction: Yes Diagnosis: FALSE LABOR BEFORE 37 COMPLETED WEEKS OF GEST, SECOND TRI
== END 2018-11-10 01:10 | disposition home or self-care (01) ==
LOC: FBPOP 23:55
PROVIDERS: ATTEND Obstetrics & Gynecology
DX: O47.02 False labor before 37 completed weeks of gestation, second trimester (principal); Z3A.25 25 weeks gestation of pregnancy
CPT/HCPCS: 81001; 99213

== ENCOUNTER 2018-12-18 09:53 | Outpatient (CLI) | payer BC, OTHER ==
[2018-12-18] MEDS ORDERED: ONDANSETRON 4 MG/2 ML VIAL IVP STA (10:48)
[2018-12-18] MEDS: DEXTROSE 5%-LACTATED RINGERS 1,000 ML IV ONE ×2 (11:06→12:05)
[2018-12-18 11:29] LABS: Appearance,Urine Clear (Clear); Bacteria,Urine Rare /hpf; Bilirubin,Urine Negative (Negative); Blood,Urine Negative (Negative); Color,Urine Yellow; Glucose,Urine (UA) Negative (Negative); Hyphae Yeast, Urine Rare /hpf; Ketones,Urine 2+ (Negative); Leukocyte Esterase,Urine Large (Negative); Mucus,Urine Rare /hpf; Nitrite,Urine Negative (Negative); PH, Urine 7.5 (5.0-8.0); Protein,Urine Trace (Negative); RBC,Urine 5 /hpf (0-5); Specific Gravity,Urine 1.031 (1.001-1.035); Squamous Epithelial Cell,Urine 4 /hpf (0-4); Urobilinogen,Urine <2.0 mg/dL (<2.0); WBC,Urine 7 /hpf (0-5)
[2018-12-18 15:57] VITALS: BP 126/67; PULSE 96; RESP 16; TEMP 97
--- NOTE | 2019-01-22 07:37 | P.MSEPDOC ---
Presenting Problems - Arrival Data Date of Arrival on Unit: 12/18/18 Time of Arrival on Unit: 09:53 Mode of Transport: Wheelchair - Complaint OB-Reason for Admission/Chief Complaint: Possible Onset of Labor, Acute Nausea/Vomiting Comment: pt complains of vomitting all night, contractions Medical History - Information : 7 Para: 4 Term: 3 : 1 Abortions: Spontaneous or Elective: 2 Number of Living Children: 4 - Gestational Age Gestational Age by JILL (wks/days): 31 Weeks and 1 Days - History Complications: Prior Review of Systems - Review of Systems Constitutional: No problems Breast: No problems ENT: No problems Cardiovascular: No problems Respiratory: No problems Gastrointestinal: No problems Genitourinary: No problems Musculoskeletal: No problems Neurological: No problems Skin: No problems Vital Signs - Temperature Temperature: 97.0 F Temperature Source: Temporal Artery Scan - Pulse Right Brachial Pulse Rate: 96 Pulse Assessment Method: Automatic Cuff - Respirations Respiratory Rate: 16 Oxygen Delivery Method: Room Air O2 Sat by Pulse Oximetry: 100 - Blood Pressure Right Arm Blood Pressure: 126/67 Blood Pressure Mean: 86 Blood Pressure Source: Automatic Cuff Medical Screen Scoring (Pre) - Cervical Exam Dilation: 1-3 cm = 1 Membranes: Intact - Uterine Contractions Frequency: < 36 weeks = 6 Duration: N/A Intensity: N/A - Maternal Vital Signs Maternal Temperature: N/A Maternal Blood Pressure: N/A Signs of Preeclampsia: N/A Maternal Respirations: N/A - Assessment - Baby A Baseline FHR: 145 Heart Rate - NICHD Category: Category I (Normal) = 0 NST: Reactive Position: N/A Station: N/A - Total Score - Baby A Total Score - Baby A: 7 - Level of Risk - Baby A Level of Risk - Baby A: Medium (6-9) - Pain Assessment Pain Location and Character: Abdomen Pain Scale Used: Numeric (1 - 10) Pain Intensity: 8 Pain Description: *Acute, Cramping Pain Frequency: Intermittent Pain Behavior: Facial Grimacing, Vocalization Physician Notification (Pre) - Physician Notified Physician Notified Date: 12/18/18 Physician Notified Time: 10:45 Spoke With: Myriam New Order Received: Yes - Notification Comment Comment: order 1000ml bolus D5LR, Zofran, UA, send ffn, call with results Medical Screen Scoring (Post) - Cervical Exam Dilation: 1-3 cm = 1 Membranes: Intact - Uterine Contractions Frequency: N/A Duration: N/A Intensity: N/A - Maternal Vital Signs Maternal Temperature: N/A Maternal Blood Pressure: N/A Signs of Preeclampsia: N/A Maternal Respirations: N/A - Pain Assessment Pain Scale Used: Numeric (1 - 10) Pain Intensity: 0 - Assessment - Baby A Heart Rate: 145 Heart Rate - NICHD Category: Category I (Normal) = 0 NST: Reactive Position: N/A - Total Score Total Score - Baby A: 1 - Post Treatment Level of Risk Post Treatment Level of Risk - Baby A: Low (0-5) Physician Notification (Post) - Physician Notified Physician Notified Date: 12/18/18 Physician Notified Time: 11:59 Spoke With: Myriam House Order Received: Yes - Notification Comment Comment: UA is 2+ Ketones, pt feeling much better. Order give one more liter D5LR then discharge Disposition - Disposition OB Disposition: Discharge to home Discharge Date: 12/18/18 Discharge Time: 13:05 I agree with the RN Medical Screening Exam: Yes Risk & Benefit of care provided described in d/c instruction: Yes Diagnosis: LATE VOMITING OF
== END 2018-12-18 13:05 | disposition home or self-care (01) ==
LOC: FBPOP 09:53
PROVIDERS: ATTEND Obstetrics & Gynecology
DX: O21.2 Late vomiting of pregnancy (principal); Z3A.31 31 weeks gestation of pregnancy
CPT/HCPCS: 59025; 99214; 96360; 96361; 96375; 84112; 82731; 81001; J2405; 96365

== ENCOUNTER 2019-01-20 19:26 | Outpatient (CLI) | payer BC, OTHER ==
[2019-01-20 20:11] VITALS: BP 126/64; PULSE 92; RESP 16; TEMP 96.1
--- NOTE | 2019-02-25 08:58 | P.MSEPDOC ---
Presenting Problems - Arrival Data Date of Arrival on Unit: 01/20/19 Time of Arrival on Unit: 19:26 Mode of Transport: Ambulatory - Complaint OB-Reason for Admission/Chief Complaint: Other Comment: pressure and possible ROM Medical History - Information : 7 Para: 4 Term: 3 : 1 Abortions: Spontaneous or Elective: 2 Number of Living Children: 4 - Gestational Age Gestational Age by JILL (wks/days): 35 Weeks and 6 Days Review of Systems - Review of Systems Constitutional: No problems Breast: No problems ENT: No problems Cardiovascular: No problems Respiratory: No problems Gastrointestinal: No problems Genitourinary: No problems Musculoskeletal: No problems Neurological: No problems Skin: No problems Vital Signs - Temperature Temperature: 96.1 F Temperature Source: Temporal Artery Scan - Pulse Right Brachial Pulse Rate: 92 Pulse Assessment Method: Automatic Cuff - Respirations Respiratory Rate: 16 Oxygen Delivery Method: Room Air O2 Sat by Pulse Oximetry: 99 - Blood Pressure Right Arm Blood Pressure: 126/64 Blood Pressure Mean: 84 Blood Pressure Source: Automatic Cuff Medical Screen Scoring (Pre) - Cervical Exam Dilation: 1-3 cm = 1 Membranes: Intact - Uterine Contractions Frequency: > 5 minutes apart = 1 Duration: N/A Intensity: N/A - Maternal Vital Signs Maternal Temperature: N/A Maternal Blood Pressure: N/A Signs of Preeclampsia: N/A Maternal Respirations: N/A - Maternal Trauma Maternal Trauma: N/A - Assessment - Baby A Baseline FHR: 135 Heart Rate - NICHD Category: Category I (Normal) = 0 NST: Reactive - Total Score - Baby A Total Score - Baby A: 2 - Total Score - Baby B Total Score - Baby B: 2 - Total Score - Baby C Total Score - Baby C: 2 - Level of Risk - Baby A Level of Risk - Baby A: Low (0-5) - Level of Risk - Baby B Level of Risk - Baby B: Low (0-5) - Level of Risk - Baby C Level of Risk - Baby C: Low (0-5) Physician Notification (Pre) - Physician Notified Physician Notified Date: 01/20/19 Physician Notified Time: 20:01 Physician/Practitioner Notifed:: Dr. Kay Spoke With: Dr. Kay New Order Received: Yes - Notification Comment Comment: Dr. Kay called and given report on pt in tr. Pt c/o, vs wnl, vag exam of /-3, reactive nst, one contraction noted on strip. Amsnisure negative. Orders recieved to d/c pt to home. Pt may stay additional hour to be rechecked if pt wishes. Disposition - Disposition OB Disposition: Discharge to home Discharge Date: 01/20/19 Discharge Time: 20:10 I agree with the RN Medical Screening Exam: Yes Risk & Benefit of care provided described in d/c instruction: Yes Diagnosis: FALSE LABOR BEFORE 37 COMPLETED WEEKS OF GEST, THIRD TRI
== END 2019-01-20 20:10 | disposition home or self-care (01) ==
LOC: FBPOP 19:26
PROVIDERS: ATTEND Obstetrics & Gynecology Obstetrics
DX: O47.03 False labor before 37 completed weeks of gestation, third trimester (principal); Z3A.35 35 weeks gestation of pregnancy
CPT/HCPCS: 59025; 84112; 99213

== ENCOUNTER 2019-01-31 20:25 | Outpatient (CLI) | payer BC, OTHER ==
[2019-01-31 22:07] VITALS: BP 136/77; PULSE 96; RESP 18; TEMP 96.7
--- NOTE | 2019-03-02 10:15 | P.MSEPDOC ---
Presenting Problems - Arrival Data Date of Arrival on Unit: 01/31/19 Time of Arrival on Unit: 20:25 Mode of Transport: Ambulatory - Complaint OB-Reason for Admission/Chief Complaint: Rule Out SROM Medical History - Information : 7 Para: 4 Term: 4 : 0 Abortions: Spontaneous or Elective: 2 Number of Living Children: 4 - Gestational Age Gestational Age by JILL (wks/days): 37 Weeks and 3 Days Review of Systems - Review of Systems Constitutional: No problems Breast: No problems ENT: No problems Cardiovascular: No problems Respiratory: No problems Gastrointestinal: No problems Genitourinary: No problems Musculoskeletal: No problems Neurological: No problems Skin: No problems Vital Signs - Temperature Temperature: 96.7 F Temperature Source: Temporal Artery Scan - Pulse Right Brachial Pulse Rate: 96 Pulse Assessment Method: Automatic Cuff - Respirations Respiratory Rate: 18 Oxygen Delivery Method: Room Air O2 Sat by Pulse Oximetry: 97 - Blood Pressure Right Arm Blood Pressure: 136/77 Blood Pressure Mean: 96 Blood Pressure Source: Automatic Cuff Medical Screen Scoring (Pre) - Cervical Exam Dilation: 1-3 cm = 1 Effacement: Exam Deferred Membranes: Intact - Uterine Contractions Frequency: > 5 minutes apart = 1 Duration: > 40 seconds = 2 Intensity: N/A - Maternal Vital Signs Maternal Temperature: N/A Maternal Blood Pressure: N/A Signs of Preeclampsia: N/A Maternal Respirations: N/A - Maternal Trauma Maternal Trauma: N/A - Assessment - Baby A Baseline FHR: 140 Heart Rate - NICHD Category: Category I (Normal) = 0 NST: Reactive Position: N/A Station: N/A - Total Score - Baby A Total Score - Baby A: 4 - Total Score - Baby B Total Score - Baby B: 4 - Total Score - Baby C Total Score - Baby C: 4 - Level of Risk - Baby A Level of Risk - Baby A: Low (0-5) - Level of Risk - Baby B Level of Risk - Baby B: Low (0-5) - Level of Risk - Baby C Level of Risk - Baby C: Low (0-5) Physician Notification (Pre) - Physician Notified Physician Notified Date: 01/31/19 Physician Notified Time: 20:25 Physician/Practitioner Notifed:: Dr. Rivera Spoke With: Dr. Rivera New Order Received: Yes Disposition - Disposition OB Disposition: Triage, Discharge to home, Written follow up instructions reviewed Discharge Date: 01/31/19 Discharge Time: 21:58 I agree with the RN Medical Screening Exam: Yes Risk & Benefit of care provided described in d/c instruction: Yes Diagnosis: FALSE LABOR AT OR AFTER 37 COMPLETED WEEKS OF GESTATION
== END 2019-01-31 22:00 | disposition home or self-care (01) ==
LOC: FBPOP 20:25
PROVIDERS: ATTEND Obstetrics & Gynecology
DX: O47.1 False labor at or after 37 completed weeks of gestation (principal); Z3A.37 37 weeks gestation of pregnancy
CPT/HCPCS: 59025; 84112; 99213

== ENCOUNTER 2019-02-11 06:05 | Inpatient (IN) | payer BC, OTHER ==
[2019-02-11] MEDS ORDERED: TERBUTALINE 1 MG/ML VIAL SQ PRN (06:14)
[2019-02-11] MEDS ORDERED: CARBOPROST TROMETHAMINE 250 MCG/ML 1 ML AMP IM PRN (06:14)
[2019-02-11] MEDS ORDERED: OXYTOCIN 10 UNIT/ML 1 ML VIAL IM PRN (06:14)
[2019-02-11] MEDS ORDERED: LIDOCAINE 0.5% (PF) 5 MG/ML (50 ML SDV) SQ PRN (06:14)
[2019-02-11] MEDS ORDERED: METHYLERGONOVINE 0.2 MG/ML 1 ML AMP IM PRN (06:14)
[2019-02-11] MEDS ORDERED: LACTATED RINGERS 1,000 ML IV SCH (06:15)
[2019-02-11 06:22] VITALS: BMI 34.1
[2019-02-11] MEDS: LACTATED RINGERS 1,000 ML IV SCH (06:23)
[2019-02-11 06:50] LABS: Anisocytosis Slight; Basophils % (A) 0 %; Eosinophils # (A) 0.1 k/uL (0-0.7); Eosinophils % (A) 1 %; HGB 10.2 gm/dL (11.4-16.0); Lymphocytes # (A) 2.5 k/uL (1.0-4.8); Lymphocytes % (A) 22 %; MCH 23.7 pg (25.0-35.0); MCHC 31.7 g/dL (31.0-37.0); MCV 74.7 fL (80.0-100.0); Mean Platelet Volume 7.9; Microcytosis Slight; Monocytes # (A) 0.6 k/uL (0-1.0); Monocytes % (A) 5 %; Neutrophils # (A) 7.9 k/uL (1.3-7.7); Neutrophils % (A) 69 %; Platelet Count 248 k/uL (150-450); RBC 4.29 m/uL (3.80-5.40); RDW 16.3 % (11.5-15.5); WBC 11.4 k/uL (3.8-10.6)
[2019-02-11] MEDS: OXYTOCIN 30 UNITS/500 ML NS 30 UNIT in SALINE 1 500ML.BAG IV SCH (06:55)
--- NOTE | 2019-02-11 07:26 | P.HPOB ---
History of Present Illness H&P Date: 02/11/19 Chief Complaint: Here for elective induction of labor This is a 28-year-old white female 5 para 3023 EDC 02/18/2019 at 39 weeks gestation. Patient presents today for elective induction of labor. She is having mild uterine contractions spontaneously. She denies fluid leakage or vaginal bleeding. She denies HSV prodrome or lesions at this time. Past medical history is significant for asthma as a child, HSV. Past surgical history cervical cerclage 2013. Current medications vitamins daily, Valtrex 500 mg daily. ALLERGIES none known. Family history significant for hypertension. Social history patient is but currently , 2 packs per day tobacco, decreased in . She denies alcohol or drug use. Obstetric history is significant for blood type O+, rubella status immune. Pap smear, urine culture, gonorrhea Chlamydia cultures, hepatitis B surface antigen, HIV testing, group B strep cultures all negative. One-hour Glucola 128. On exam this is a pleasant white female, 5 foot 5 inches, 205 pounds. Vital signs are stable and she is afebrile. General physical exam is within normal limits, no peripheral edema. Chest is clear. Cervix is 4-5 cm dilated, 70% effaced, -2 station, vertex presentation. Artificial amniorrhexis reveals clear fluid. heart tones are consistent with reactive NST with frequent acce lerations. Uterine contractions are occurring spontaneously approximately every 6-8 minutes apart of mild intensity. Impression: 39 week intrauterine , history of HSV with no active lesions or prodrome. Favorable multiparous cervix. All signs reassuring. Plan: Continue close maternal and surveillance. Oxytocin per hospital protocol. Anticipate normal spontaneous vaginal delivery. Analgesic options have been reviewed with the patient. Review of Systems Constitutional: Reports as per HPI Past Medical History Past Medical History: Asthma History of Any Multi-Drug Resistant Organisms: None Reported Past Surgical History: No Surgical Hx Reported Additional Past Surgical History / Comment(s): cerclage with 2nd Past Anesthesia/Blood Transfusion Reactions: No Reported Reaction Past Psychological History: Anxiety, Bipolar Additional Psychological History / Comment(s): Borderline personality disorder Smoking Status: Former smoker Past Alcohol Use History: None Reported Past Drug Use History: None Reported - Past Family History Mother Family Medical History: Hyperlipidemia, Hypertension Additional Family Medical History / Comment(s): bipolar and anxiety Medications and Allergies Home Medications Medication Instructions Recorded Confirmed Type valACYclovir [Valtrex] 1 tab PO ONCE 02/11/19 02/11/19 History Allergies Allergy/AdvReac Type Severity Reaction Status Date / Time No Known Allergies Allergy Verified 02/11/19 06:13 Exam Vital Signs Temp Pulse Resp BP Pulse Ox 02/11/19 06:18 96.6 F L 88 16 126/72 98 Intake and Output 02/10/19 02/11/19 02/11/19 22:59 06:59 14:59 Other: Weight 92.986 kg See dictation under HPI please Results Result Diagrams: 02/11/19 06:25 Abnormal Lab Results - Last 24 Hours (Table) 02/11/19 Range/Units 06:25 WBC 11.4 H (3.8-10.6) k/uL Hgb 10.2 L (11.4-16.0) gm/dL Hct 32.0 L (34.0-46.0) % MCV 74.7 L (80.0-100.0) fL MCH 23.7 L (25.0-35.0) pg RDW 16.3 H (11.5-15.5) % Neutrophils # 7.9 H (1.3-7.7) k/uL Assessment and Plan Assessment: 39 week intrauterine , here for elective induction of labor with favorable cervix. History of HSV, no active lesions or prodrome noted. All signs reassuring. Plan: Oxytocin per hospital protocol. Analgesic options have been reviewed with the patient. Anticipate normal spontaneous vaginal delivery. Time with Patient: Less than 30
[2019-02-11] MEDS ORDERED: BUTORPHANOL 1 MG/ML 1 ML VIAL IV PRN (09:23)
--- NOTE | 2019-02-11 13:10 | P.PROBDLV ---
Vaginal Delivery Note - . Vaginal Delivery Note: This is a 28-year-old white female 5 para 3013 EDC 02/28/2019 at 39 weeks gestation. Patient presented for induction with favorable multiparous cervix. She was 4-5 cm dilated on admission. was remarkable for rubella status immune, protein C deficiency, blood type O positive, group beta strep cultures negative. Please see dictated history and physical for details. Artificial amniorrhexis with clear fluid. Oxytocin was started and titrated per hospital protocol. She declined the option for epidural. She did receive Stadol 1 mg. She became completely dilated at 1239 hours. . Perineal body was prepped and draped in usual sterile fashion. With excellent maternal expulsive efforts head delivered occiput anterior. There was a nuchal cord 1 that was reduced. The right or anterior shoulder was delivered from underneath the pubic symphysis at which time the oropharynx, nasopharynx, and external nares were bulb suctioned on the perineal body. Placenta delivered spontaneously, it was inspected and noted to be intact with trivascular cord at 1243 hours. Uterus was then massaged. Inspection of the cervix, vagina, perineum, periurethral, and perirectal areas revealed no lacerations and no defects. weighs 3230 g, or 7 lbs. 12 oz. All sponge needle and instruments counts were correct at the end of the procedure. Total estimated blood loss 250 mL. scores assigned were 8 and 9 at one and 5 minutes respectively. Patient and family are allowed to begin the bonding experience.
[2019-02-11] MEDS ORDERED: ACETAMINOPHEN TAB 325 MG TAB PO PRN (13:11)
[2019-02-11] MEDS ORDERED: diphenhydrAMINE 50 MG/ML 1 ML VIAL IVP PRN ×2 (13:11)
[2019-02-11] MEDS ORDERED: LANOLIN CREAM 5 GM TUBE TOPICAL PRN (13:11)
[2019-02-11] MEDS ORDERED: HYDROCORTISONE 2.5% RECTAL CREAM 30 GM TUBE RECTAL PRN (13:11)
[2019-02-11] MEDS ORDERED: ZOLPIDEM 5 MG TAB PO PRN (13:11)
[2019-02-11] MEDS ORDERED: diphenhydrAMINE 25 MG CAP PO PRN (13:11)
[2019-02-11] MEDS ORDERED: SIMETHICONE 80 MG CHEWABLE PO PRN (13:11)
[2019-02-11] MEDS ORDERED: BENZOCAINE/MENTHOL SPRAY 1 GM/SPRAY AEROSOL TOPICAL PRN (13:11)
[2019-02-11] MEDS ORDERED: WITCH HAZEL 1 EACH MED..PAD TOPICAL PRN (13:11)
[2019-02-11] MEDS ORDERED: diphenhydrAMINE 50 MG CAP PO PRN (13:11)
[2019-02-11] MEDS ORDERED: OXYTOCIN 20 UNITS/1000 ML NS 1,000 ML IV SCH (13:15)
[2019-02-11] MEDS: IBUPROFEN 600 MG TAB PO PRN (16:54)
[2019-02-11 16:57] VITALS: RESP 16
[2019-02-12] MEDS: SENNOSIDES-DOCUSATE SODIUM 1 EACH TAB PO SCH ×2 (01:52→11:20)
[2019-02-12] MEDS: LACTATED RINGERS 1,000 ML IV SCH ×2 (01:52→01:53)
[2019-02-12] MEDS: IBUPROFEN 600 MG TAB PO PRN (05:55)
[2019-02-12 06:55] LABS: Anisocytosis Slight; Basophils % (A) 0 %; Eosinophils # (A) 0.1 k/uL (0-0.7); Eosinophils % (A) 1 %; HCT 30.2 % (34.0-46.0); HGB 9.5 gm/dL (11.4-16.0); Hypochromasia Marked; Lymphocytes # (A) 2.3 k/uL (1.0-4.8); Lymphocytes % (A) 25 %; MCH 24.4 pg (25.0-35.0); MCHC 31.3 g/dL (31.0-37.0); MCV 77.7 fL (80.0-100.0); Mean Platelet Volume 8.5; Microcytosis Slight; Monocytes # (A) 0.5 k/uL (0-1.0); Monocytes % (A) 6 %; Neutrophils # (A) 6.1 k/uL (1.3-7.7); Neutrophils % (A) 66 %; Platelet Count 198 k/uL (150-450); RBC 3.89 m/uL (3.80-5.40); RDW 16.4 % (11.5-15.5); WBC 9.3 k/uL (3.8-10.6)
[2019-02-12] MEDS: OXYTOCIN 30 UNITS/500 ML NS 30 UNIT in SALINE 1 500ML.BAG IV SCH (07:24)
--- NOTE | 2019-02-12 07:32 | P.DS ---
Providers Date of admission: 02/11/19 06:05 Expected date of discharge: 02/12/19 Attending physician: Maureen Miguel Primary care physician: Stated None Hospital Course: This is a 28-year-old white female 5 para 3013 EDC 02/18/2019 at 39 weeks gestation. Patient presented for induction with favorable multiparous cervix. is remarkable for blood type O+, rubella status immune, group B strep cultures negative. Please see dictated history and physical for details. Patient has been on Valtrex 500 mg daily and no prodrome or lesions are noted. Artificial amniorrhexis revealed clear fluid. Oxytocin was started and titrated per hospital protocol. She went on to swiftly deliver a liveborn female infant with scores of 8 and 9 at one and 5 minutes respectively. There was a nuchal cord 1 that was reduced. Estimated blood loss 200 mL's. No lacerations or defects. Infant weighed 3230 g or 7 lbs. 2 oz. Please see my dictated delivery note for details. This morning the patient is doing well. She is voiding, ambulating and passing flatus without difficulty. Vital signs are stable and she is afebrile. Fundus is firm and in the midline, symmetric and 18 week size. Extremities are negative for edema. Chest is clear in all loredo. Joanna infant is doing well. Patient is judged to be in very good condition for discharge home. She will follow-up with me in the office in 6 weeks. I have reminded her no intercourse, tampons or douching. She will use [id number] Advil or Aleve as needed for pain. I've asked her to call me with any fevers shakes or chills, foul smelling or copious lochia, with the passage of large blood clots, with any pain not alleviated by [id number] products, or indeed with any concerns. Patient Condition at Discharge: Good Plan - Discharge Summary Discharge Rx Participant: No New Discharge Prescriptions: No Action valACYclovir [Valtrex] 1 tab PO ONCE Discharge Medication List valACYclovir [Valtrex] 1 tab PO ONCE 02/11/19 [History] Follow up Appointment(s)/Referral(s): Maureen Miguel MD [STAFF PHYSICIAN] - 6 Weeks Discharge Disposition: HOME SELF-CARE
[2019-02-12 10:55] VITALS: BP 112/52; PULSE 77; TEMP 98.2
== END 2019-02-12 14:15 | disposition home or self-care (01) | DRG 807 ==
LOC: 4FBP 06:05
PROVIDERS: ADMIT Obstetrics & Gynecology; ATTEND Obstetrics & Gynecology
PROC: 10E0XZZ Delivery of Products of Conception, External Approach (ICD-10-PCS; principal; 2019-02-11)
PROC: 10907ZC Drainage of Amniotic Fluid, Therapeutic from Products of Conception, Via Natural or Artificial Opening (ICD-10-PCS; principal; 2019-02-11)
DX: O98.32 Other infections with a predominantly sexual mode of transmission complicating childbirth (principal); Z37.0 Single live birth; A60.09 Herpesviral infection of other urogenital tract; Z3A.39 39 weeks gestation of pregnancy; Z87.09 Personal history of other diseases of the respiratory system; Z82.49 Family history of ischemic heart disease and other diseases of the circulatory system; Z79.899 Other long term (current) drug therapy; O69.81X0 Labor and delivery complicated by cord around neck, without compression, not applicable or unspecified; Z87.891 Personal history of nicotine dependence
CPT/HCPCS: 85025; 86850; 86870; 86880; 86900; 86901; 86902

== ENCOUNTER 2019-05-10 11:32 | Emergency (ER) | payer OTHER ==
[2019-05-10] MEDS ORDERED: cefTRIAXone 1,000 MG VIAL (IM USE) IM STA (13:04)
--- NOTE | 2019-05-10 13:06 | ED ---
Skin/Abscess/FB HPI - General Chief complaint: Skin/Abscess/Foreign Body Stated complaint: left breast pain and swelling Time Seen by Provider: 05/10/19 11:47 Source: patient Mode of arrival: ambulatory Limitations: no limitations - History of Present Illness Initial comments: 29-year-old male presented for left breast abscess x 2 weeks. Patient states that she is 11 weeks , she states that she is not breast-feeding however developed a small bump at the 6 o'clock position on her left breast 2 weeks ago. Patient states has been enlarging now is warm and red. Patient has a fever flu symptoms palpitations weakness or any other associated symptoms. Patient states that there is some yellow dots in the center of the lesion and she was concerned that it is infected. Remaining review of system negative. Patient denies any other complaints. Patient appears well upon arrival afebrile nontoxic appearing - Related Data Home Medications Medication Instructions Recorded Confirmed valACYclovir [Valtrex] 1 tab PO ONCE 02/11/19 02/11/19 Previous Rx's Medication Instructions Recorded Cephalexin [Keflex] 500 mg PO Q6HR 7 Days #28 cap 05/10/19 Allergies Allergy/AdvReac Type Severity Reaction Status Date / Time No Known Allergies Allergy Verified 02/11/19 06:13 Review of Systems ROS Statement: Those systems with pertinent positive or pertinent negative responses have been documented in the HPI. ROS Other: All systems not noted in ROS Statement are negative. Past Medical History Past Medical History: Asthma History of Any Multi-Drug Resistant Organisms: None Reported Past Surgical History: No Surgical Hx Reported Additional Past Surgical History / Comment(s): cerclage with 2nd Past Anesthesia/Blood Transfusion Reactions: No Reported Reaction Past Psychological History: Anxiety, Bipolar Smoking Status: Current every day smoker Past Alcohol Use History: None Reported Past Drug Use History: None Reported - Past Family History Mother Family Medical History: Hyperlipidemia, Hypertension Additional Family Medical History / Comment(s): bipolar and anxiety General Exam - General Exam Comments Initial Comments: General: The patient is awake and alert, in no distress, and does not appear acutely ill. Eye: +3 mm pupils are equal, round and reactive to light, extra-ocular movements are intact. No nystagmus. There is normal conjunctiva bilaterally. No signs of icterus. Ears, nose, mouth and throat: There are moist mucous membranes and no oral lesions. Neck: The neck is supple, there is no tenderness or JVD. Cardiovascular: There is a regular rate and rhythm. No murmur, rub or gallop is appreciated. Respiratory: Lungs are clear to auscultation, respirations are non-labored, breath sounds are equal. No wheezes, stridor, rales, or rhonchi. Gastrointestinal: Soft, non-distended, non-tender abdomen without masses or organomegaly noted. There is no rebound or guarding present. Musculoskeletal: Normal ROM, no tenderness. Strength 5/5. Sensation intact. Pu lses equal bilaterally 2+. Neurological: A&O x 3. CN II-XII intact grossly, There are no obvious motor or sensory deficits. Coordination appears grossly intact. Speech is normal. Skin: Skin is warm and dry and no rashes. 2x1cm fluctuant red breast abscess that appears to have are spontaneously drained previously. No current drainage. No diffuse redness. Tender to touch. Psychiatric: Cooperative, appropriate mood & affect, normal judgment. Limitations: no limitations Course Vital Signs 05/10/19 05/10/19 11:36 13:50 Temperature 98.5 F 98.4 F Pulse Rate 76 63 Respiratory 18 16 Rate Blood Pressure 125/83 125/81 O2 Sat by Pulse 99 97 Oximetry Procedures - Incision & Drainage Consent Obtained: verbal consent Indication: Breast abscess Size (cm): 2 I&D Cleaning Method: Iodine Sterile Field Used?: Yes Scalpel Used: #11 Needle Aspiration Performed?: Yes (Purulent drainage) Irrigation Performed?: No I&D Drainage Obtained: Pus, Blood Culture Obtained?: Yes Patient Tolerated Procedure: well, no complications Medical Decision Making - Medical Decision Making 29-year-old female presents for evaluation of possible breast abscess. There is fluctuant abscess on examination. Needle aspiration and drainage was performed using an 11 blade. Sterile field was use iodine was used to cleanse prior to performing. Loculations were broken up. I was able to obtain a culture. Patient is not currently on antibiotics and not currently breast-feeding patient was started on Keflex. Patient is to follow-up with her primary care provider one to 2 days. Patient does not appear septic she is well-appearing afebrile. Return parameters include flulike symptoms or fever worsening pain redness or increasing drainage. Patient verbalized understanding of the importance of return parameters and was discharged appearing well and to discuss the case with him provider Dr. Schulz was agreeable to this care plan as well Disposition Clinical Impression: Breast abscess Disposition: HOME SELF-CARE Condition: Good Instructions (If sedation given, give patient instructions): Abscess Incision and Drainage (ED) Additional Instructions: Please use medication as discussed. Please follow-up with family doctor in the next 2 days. Please return to emergency room if the symptoms increase or worsen or for any other concerns-fever, increasing pain and drainage. Prescriptions: Cephalexin [Keflex] 500 mg PO Q6HR 7 Days #28 cap Is patient prescribed a controlled substance at d/c from ED?: No Referrals: Quincy Busch DO [Primary Care Provider] - 1-2 days Time of Disposition: 13:05
[2019-05-10 13:53] VITALS: BP 125/81; PULSE 63; RESP 16; TEMP 98.4
== END 2019-05-10 13:50 | disposition home or self-care (01) ==
LOC: EC 11:32
DX: N61.1 Abscess of the breast and nipple (principal); R00.2 Palpitations; R53.1 Weakness; F17.200 Nicotine dependence, unspecified, uncomplicated; Z79.899 Other long term (current) drug therapy
CPT/HCPCS: 99283; 10160; 96372; J0696

== ENCOUNTER 2021-05-17 07:45 | Emergency (ER) | payer OTHER ==
[2021-05-17 07:59] VITALS: RESP 18
--- NOTE | 2021-05-17 09:34 | ED ---
General Adult HPI - General Chief complaint: Upper Respiratory Infection Stated complaint: cough, SOB Time Seen by Provider: 05/17/21 08:00 Source: patient, RN notes reviewed, old records reviewed Mode of arrival: ambulatory Limitations: no limitations - History of Present Illness Initial comments: This is a 31-year-old female who presents emergency Department with a four-day history of cough and feeling warm. Patient states she did not COVID vaccine. Patient denies any sore throat. Patient denies any diarrhea. Patient denies any loss of taste or smell. Patient states she is feeling a little bit short of breath especially when she coughs. She does have some chest pain when she coughs only. Patient denies any headache patient denies numbness weakness. Patient is, pain patient has nausea vomiting diarrhea. - Related Data Home Medications Medication Instructions Recorded Confirmed valACYclovir [Valtrex] 1 tab PO ONCE 02/11/19 02/11/19 Previous Rx's Medication Instructions Recorded cephALEXin [Keflex] 500 mg PO Q6HR 7 Days #28 cap 05/10/19 Allergies Allergy/AdvReac Type Severity Reaction Status Date / Time No Known Allergies Allergy Verified 05/17/21 07:58 Review of Systems ROS Statement: Those systems with pertinent positive or pertinent negative responses have been documented in the HPI. ROS Other: All systems not noted in ROS Statement are negative. Past Medical History Past Medical History: Asthma History of Any Multi-Drug Resistant Organisms: None Reported Past Surgical History: No Surgical Hx Reported Additional Past Surgical History / Comment(s): cerclage with 2nd Past Anesthesia/Blood Transfusion Reactions: No Reported Reaction Past Psychological History: Anxiety, Bipolar Smoking Status: Never smoker Past Alcohol Use History: None Reported Past Drug Use History: Marijuana - Past Family History Mother Family Medical History: Hyperlipidemia, Hypertension Additional Family Medical History / Comment(s): bipolar and anxiety General Exam - General Exam Comments Initial Comments: GENERAL: Patient is well-developed and well-nourished. Patient is nontoxic and well- hydrated and is in mild distress. ENT: Neck is soft and supple. No significant lymphadenopathy is noted. Oropharynx is clear. Moist mucous membranes. Neck has full range of motion without eliciting any pain. EYES: The sclera were anicteric and conjunctiva were pink and moist. Extraocular movements were intact and pupils were equal round and reactive to light. Eyelids were unremarkable. PULMONARY: Unlabored respirations. Good breath sounds bilaterally. No audible rales rhonchi or wheezing was noted. CARDIOVASCULAR: There is a regular rate and rhythm without any murmurs gallops or rubs. ABDOMEN: Soft and nontender with normal bowel sounds. SKIN: Skin is clear with no lesions or rashes and otherwise unremarkable. NEUROLOGIC: Patient is alert and oriented x3. Cranial nerves II through XII are grossly intact. Motor and sensory are also intact. Normal speech, volume and content. Symmetrical smile. MUSCULOSKELETAL: Normal extremities with adequate strength and full range of motion. LYMPHATICS: No significant lymphadenopathy is noted PSYCHIATRIC: Normal psychiatric evaluation. Limitations: no limitations Course Vital Signs 05/17/21 07:55 Temperature 98.8 F Pulse Rate 71 Respiratory 18 Rate Blood Pressure 121/76 O2 Sat by Pulse 98 Oximetry Medical Decision Making - Medical Decision Making Patient is RSV positive - Lab Data Lab Results 05/17/21 Range/Units 08:18 Influenza Type A (PCR) Not Detected (Not Detectd) Influenza Type B (PCR) Not Detected (Not Detectd) RSV (PCR) Detected A (Not Detectd) SARS-CoV-2 (PCR) Not Detected (Not Detectd) Disposition Clinical Impression: RSV (acute bronchiolitis due to respiratory syncytial virus) Disposition: HOME SELF-CARE Condition: Good Instructions (If sedation given, give patient instructions): Respiratory Syncytial Virus (ED) Is patient prescribed a controlled substance at d/c from ED?: No Referrals: Quincy Busch DO [Primary Care Provider] - 1-2 days Time of Disposition: 11:12
--- NOTE | 2021-05-17 10:17 | XR ---
EXAMINATION TYPE: XR chest 2V DATE OF EXAM: 05/17/2021 COMPARISON: Chest x-ray December 25, 2013 HISTORY: Shortness of breath cough congestion and fever. TECHNIQUE: Frontal and lateral views of the chest are obtained. FINDINGS: There is no suspicious new focal air space opacity, pleural effusion, or pneumothorax seen . The cardiac silhouette size is stable and within normal limits. The osseous structures are intac t. IMPRESSION: No acute pulmonary process.
[2021-05-17 11:34] VITALS: BP 114/79; PULSE 81; TEMP 98.1
== END 2021-05-17 11:38 | disposition home or self-care (01) ==
LOC: EC 07:45
DX: J21.0 Acute bronchiolitis due to respiratory syncytial virus (principal); J45.909 Unspecified asthma, uncomplicated; Z20.822 Contact with and (suspected) exposure to COVID-19
CPT/HCPCS: 71046; 87636; 99285

== ENCOUNTER → 2021-09-23 | Outpatient (CLI) | payer OTHER ==
[2021-09-23 14:34] LABS: Basophils # (A) 0.05 X 10*3/uL (0.00-0.10); Basophils % (A) 0.7 %; Eosinophils # (A) 0.15 X 10*3/uL (0.04-0.35); Eosinophils % (A) 2.1 %; HCT 38.2 % (37.2-46.3); HGB 12.1 g/dL (12.0-15.0); Immature Grans, Automated 0.1 %; Lymphocytes % (A) 31.7 %; MCH 27.6 pg (27.0-32.0); MCHC 31.7 g/dL (32.0-37.0); MCV 87.2 fL (80.0-97.0); Monocytes # (A) 0.64 X 10*3/uL (0.20-1.00); Monocytes % (A) 8.8 %; NRBC Per 100 WBC 0 /100 WBCS (0.0-0.0); Neutrophils # (A) 4.11 X 10*3/uL (1.80-7.70); Neutrophils % (A) 56.6 %; Platelet Count 236 X 10*3/uL (140-440); RBC 4.38 X 10*6/uL (4.10-5.20); RDW 13.8 % (11.5-14.5); WBC 7.26 X 10*3/uL (4.50-10.00)
[2021-09-23 14:53] LABS: % Iron Saturation 8.99 (12.00-45.00); ALT 11 U/L (8-44); AST 14 U/L (13-35); African American GFR (CKD) 113.1 (60.0-200.0); Albumin 4.5 g/dL (3.8-4.9); Albumin/Globulin Ratio 1.96 (1.60-3.17); Alkaline Phosphatase 33 U/L (41-126); BUN/Creat Ratio 15.25 Ratio (12.00-20.00); Blood Urea Nitrogen 12.2 mg/dL (9.0-27.0); Calcium 9.3 mg/dL (8.7-10.3); Carbon Dioxide 22.9 mmol/L (20.0-27.5); Chloride 105 mmol/L (96-109); Chol/HDL Ratio 4.11 Ratio; Globulin 2.3 g/dL (1.6-3.3); Glucose 97 mg/dL (70-110); Iron 39 ug/dL (50-170); LDL Cholesterol,Calculated 103.8 mg/dL (0.0-131.0); Non-African American GFR(CKD) 97.6 (60.0-200.0); Potassium 4.7 mmol/L (3.5-5.5); Sodium 139 mmol/L (135-145); Total Bilirubin <0.15 mg/dL (0.30-1.20); Total Iron Binding Capacity 433 ug/dL (228-460); Total Protein 6.8 g/dL (6.2-8.2); VLDL Calculation 12.68 mg/dL (5.00-40.00)
[2021-09-23 18:50] LABS: Erythrocyte Sedimentation Rate 6 mm/Hr (0-20)
== END | disposition home or self-care (01) ==
LOC: LABWHC1 09:16
PROVIDERS: ATTEND Nurse Practitioner Family
DX: Z13.220 Encounter for screening for lipoid disorders (principal); N92.1 Excessive and frequent menstruation with irregular cycle; R53.83 Other fatigue
CPT/HCPCS: 36415; 80053; 80061; 82306; 82607; 83540; 83550; 84443; 84481; 85025; 85652

== ENCOUNTER → 2021-10-14 | Outpatient (CLI) | payer OTHER ==
--- NOTE | 2021-10-14 10:06 | US ---
EXAMINATION TYPE: US pelvic complete DATE OF EXAM: 10/14/2021 COMPARISON: NONE CLINICAL HISTORY: N92.1 FREQUENT MENSTRUATION WITH IRREGULAR CYCLE. Heavy, painful irregular periods x 3 months TECHNIQUE: . Transabdominal sonographic images of the pelvis were acquired. Date of LMP: 09/19/2021 EXAM MEASUREMENTS: Uterus: 7.6 x 4.3 x 5.3 cm Endometrial Stripe: 0.8 cm Right Ovary: 3.2 x 2.4 x 2.8 cm Left Ovary: 2.7 x 2.1 x 2.4 cm 1. Uterus: wnl 2. Endometrium: wnl 3. Right Ovary: wnl 4. Left Ovary: wnl 5. Bilateral Adnexa: wnl 6. Posterior cul-de-sac: wnl IMPRESSION: No discrete abnormality is appreciated at this time.
== END | disposition home or self-care (01) ==
LOC: RADUSWWP 09:41
PROVIDERS: ATTEND Family Medicine
DX: N92.1 Excessive and frequent menstruation with irregular cycle (principal)
CPT/HCPCS: 76856

== ENCOUNTER → 2023-03-26 | Outpatient (CLI) | payer OTHER ==
--- NOTE | 2023-03-26 09:02 | US ---
EXAMINATION TYPE: US abd limited kidneys/bladder DATE OF EXAM: 03/26/2023 COMPARISON: NONE CLINICAL INDICATION: Female, 32 years old with history of R31.29 MICROSCOPIC HEMATURIA,R89.8ABNORMAL FINDING; Bilateral flank pain, frequent UTI's TECHNIQUE: Multiple sonographic images of the right upper quadrant, bilateral kidneys, and bladder ar e obtained. FINDINGS: EXAM MEASUREMENTS: Liver Length: 16.1 cm Gallbladder Wall: 0.3 cm CBD: 0.3 cm Right Kidney: 11.4 x 3.5 x 5.2 cm Left Kidney: 11.0 x 5.5 x 4.7 cm Pancreas: Tail obscured by overlying bowel gas Liver: wnl Gallbladder: no evidence of stones CBD: wnl Right Kidney: no evidence of hydronephrosis Left Kidney: no evidence of hydronephrosis Bladder: not fully distended Bilateral Jets Seen no The visualized portions of the pancreas unremarkable. The tail is obscured by overlying bowel gas. Li luke is unremarkable without focal lesion. Gallbladder is unremarkable without evidence of cholelithia sis, wall thickening, or pericholecystic fluid. Common bile duct within normal limits. No hydronephro sis, shadowing calculi, or solid mass involving both kidneys. Urinary bladder is not fully distended which limits evaluation. IMPRESSION: No ultrasound evidence for acute process. No evidence for obstructive uropathy.
== END | disposition home or self-care (01) ==
LOC: RADUSWWP 07:06
PROVIDERS: ATTEND Family Medicine
DX: R31.29 Other microscopic hematuria (principal); R89.8 Other abnormal findings in specimens from other organs, systems and tissues
CPT/HCPCS: 76705; 76770

== ENCOUNTER → 2023-11-28 | Outpatient (CLI) | payer OTHER ==
[2023-11-28 15:52] LABS: Basophils # (A) 0.04 X 10*3/uL (0.00-0.10); Basophils % (A) 0.6 %; Eosinophils # (A) 0.11 X 10*3/uL (0.04-0.35); Eosinophils % (A) 1.5 %; HCT 42.8 % (37.2-46.3); HGB 14.6 g/dL (12.0-15.0); Lymphocytes # (A) 2.49 X 10*3/uL (0.90-5.00); MCHC 34.1 g/dL (32.0-37.0); MCV 87.9 FL (80.0-97.0); Mean Platelet Volume 10.2 FL (9.5-12.2); Monocytes # (A) 0.47 X 10*3/uL (0.20-1.00); Monocytes % (A) 6.6 %; NRBC Per 100 WBC 0 X 10*3/uL (0.00-0.01); Neutrophils # (A) 3.99 X 10*3/uL (1.80-7.70); Platelet Count 255 X 10*3/uL (140-440); RBC 4.87 X 10*6/uL (4.10-5.20); RDW 12.5 % (11.5-14.5); WBC 7.12 X 10*3/uL (4.50-10.00)
[2023-11-28 19:57] LABS: ALT 13 U/L (8-44); AST 12 U/L (13-35); Albumin 4.6 g/dL (3.8-4.9); Alkaline Phosphatase 36 U/L (41-126); BUN/Creat Ratio 17.25 Ratio (12.00-20.00); Blood Urea Nitrogen 13.8 mg/dL (9.0-27.0); Calcium 9.7 mg/dL (8.7-10.3); Carbon Dioxide 21.9 mmol/L (21.6-31.8); Chloride 104 mmol/L (96-109); Chol/HDL Ratio 4.57 Ratio; Globulin 2.7 g/dL (1.6-3.3); Glucose 90 mg/dL (70-110); Iron 92 UG/DL (50-170); LDL Cholesterol,Calculated 104.8 mg/dL (0.0-131.0); Potassium 4.2 mmol/L (3.5-5.5); Sodium 139 mmol/L (135-145); T4, Free (Free Thyroxine) 1.26 ng/dL (0.80-1.80); Total Bilirubin 0.3 mg/dL (0.3-1.2); Total Protein 7.3 g/dL (6.2-8.2)
[2023-11-28 21:12] LABS: Gliadin AB IgA, Deaminated Negative (Negative); Gliadin AB IgA, Unit <0.5 U/mL; Gliadin AB IgG, Deaminated Negative (Negative); Gliadin AB IgG, Unit <0.4 U/mL
[2023-11-29 02:56] LABS: Clam IgE <0.10 kU/L; Codfish IgE <0.10 kU/L; Egg White IgE <0.10 kU/L; Peanut IgE <0.10 kU/L; Scallop IgE <0.10 kU/L; Shrimp IgE <0.10 kU/L; Soybean IgE <0.10 kU/L; Walnut IgE (Food) <0.10 kU/L
[2023-11-29 03:24] LABS: Immunoglobulin E 8.99 IU/mL (0.00-114.00)
== END | disposition home or self-care (01) ==
LOC: LABWHC1 10:27
PROVIDERS: ATTEND Nurse Practitioner Family
DX: Z13.220 Encounter for screening for lipoid disorders (principal); D64.9 Anemia, unspecified; E55.9 Vitamin D deficiency, unspecified; R63.4 Abnormal weight loss; R19.7 Diarrhea, unspecified
CPT/HCPCS: 36415; 80053; 80061; 82306; 82785; 83036; 83516; 83540; 84439; 84443; 84481; 85025; 86003; 86800

== ENCOUNTER 2024-06-06 11:33 | Emergency (ER) | payer OTHER ==
--- NOTE | 2024-06-06 12:00 | ED ---
Skin/Abscess/FB HPI - General Source: patient, RN notes reviewed Mode of arrival: ambulatory Limitations: no limitations <Rosanne Louis - Last Filed: 06/06/24 11:59> <Genet Naidu - Last Filed: 06/06/24 15:52> - General Chief complaint: Skin/Abscess/Foreign Body Stated complaint: Wound on left buttock Time Seen by Provider: 06/06/24 11:59 - History of Present Illness Initial comments: Quick note: 34-year-old female presenting to the ER with a chief complaint of a wound. Patient states for approximately 1 week she has noticed a wound near her left buttock. She states yesterday it turned blue and she attempted to drain it. She reports yellow thick drainage with blood. Patient does report fevers of 101.1 yesterday. (Rosanne Louis) Is a 34-year-old female with a history of HS presenting to the emergency department chief complaint of a abscess over the past week and a half. She noticed that there has been a abscess to the left under her buttock. States that yesterday it turned bluish in color and she attempted drain at home with copious amounts of purulence. She reports that she had a fever of 101 yesterday. denies abdominal pain, nausea, vomiting. (Genet Naidu) - Related Data Home Medications Medication Instructions Recorded Confirmed valACYclovir HCL [Valtrex] 1 tab PO ONCE 02/11/19 02/11/19 Previous Rx's Medication Instructions Recorded cephALEXin [Keflex] 500 mg PO Q6HR 7 Days #28 cap 05/10/19 Sulfamethox-Tmp 800-160Mg [Bactrim 1 each PO Q12HR #10 tab 06/06/24 Ds] Allergies Allergy/AdvReac Type Severity Reaction Status Date / Time No Known Allergies Allergy Verified 05/17/21 07:58 Review of Systems ROS Other: All systems not noted in ROS Statement are negative. <Rosanne Louis - Last Filed: 06/06/24 11:59> ROS Other: All systems not noted in ROS Statement are negative. <Genet Naidu - Last Filed: 06/06/24 15:52> ROS Statement: Those systems with pertinent positive or pertinent negative responses have been documented in the HPI. Past Medical History Past Medical History: Asthma History of Any Multi-Drug Resistant Organisms: None Reported Past Surgical History: No Surgical Hx Reported Additional Past Surgical History / Comment(s): cerclage with 2nd Past Anesthesia/Blood Transfusion Reactions: No Reported Reaction Past Psychological History: Anxiety, Bipolar Smoking Status: Current every day smoker Past Alcohol Use History: Occasional Past Drug Use History: Marijuana - Past Family History Mother Family Medical History: Hyperlipidemia, Hypertension Additional Family Medical History / Comment(s): bipolar and anxiety <Rosanne Louis - Last Filed: 06/06/24 11:59> General Exam Limitations: no limitations <Rosanne Louis - Last Filed: 06/06/24 11:59> Eye exam: Present: normal appearance, PERRL, EOMI. Absent: scleral icterus, conjunctival injection, periorbital swelling Neck exam: Present: normal inspection. Absent: tenderness, meningismus, lymphadenopathy Respiratory exam: Present: normal lung sounds bilaterally. Absent: respiratory distress, wheezes, rales, rhonchi, stridor Cardiovascular Exam: Present: regular rate, normal rhythm, normal heart sounds. Absent: systolic murmur, diastolic murmur, rubs, gallop, clicks GI/Abdominal exam: Present: soft, normal bowel sounds. Absent: distended, tenderness, guarding, rebound, rigid Extremities exam: Present: normal inspection, full ROM, normal capillary refill. Absent: tenderness, pedal edema, joint swelling, calf tenderness Back exam: Present: normal inspection Neurological exam: Present: alert, oriented X3, CN II-XII intact Skin exam: Present: warm, dry, intact, normal color, other (abscess underneath left buttock, mild erythema with no active drainage, mild fluctuance ). Absent: rash <Genet Naidu - Last Filed: 06/06/24 15:52> - General Exam Comments Initial Comments: Visual Physical Exam Vital signs reviewed General: Well-appearing, nontoxic, no acute distress. Head: Normocephalic, atraumatic Eyes: PERRLA, EOMI ENT: Airway patent Chest: Nonlabored breathing Skin: No visual rash, normal skin tone Neuro: Alert and oriented 3 Musculoskeletal: No gross abnormalities (Rosanne Louis) Course Vital Signs 06/06/24 06/06/24 11:40 13:19 Temperature 98.6 F 98.1 F Pulse Rate 88 68 Respiratory 18 16 Rate Blood Pressure 121/77 108/76 O2 Sat by Pulse 99 100 Oximetry Medical Decision Making <Rosanne Louis - Last Filed: 06/06/24 11:59> <Genet Naidu - Last Filed: 06/06/24 15:52> - Medical Decision Making I performed the quick note portion of this chart. Electronically signed by Rosanne Louis PA-C (Rosanne Louis) Was pt. sent in by a medical professional or institution ([facility], REIMBURSEMENT REP, urgent care, hospital, or [facility]...) When possible be specific @ -No Did you speak to anyone other than the patient for history (EMS, parent, family, police, friend...)? What history was obtained from this source @ -No Did you review nursing and triage notes (agree or disagree)? Why? @ -I reviewed and agree with nursing and triage notes Were old charts reviewed (outside hosp., previous admission, EMS record, old EKG, old radiological studies, urgent care reports/EKG's, [facility] records)? Report findings @ -No old charts were reviewed Differential Diagnosis (chest pain, altered mental status, abdominal pain women, abdominal pain men, vaginal bleeding, weakness, fever, dyspnea, syncope, headache, dizziness, GI bleed, back pain, seizure, CVA, palpatations, mental health, musculoskeletal)? @ -abscess, cellulitis, this list is not all inclusive. EKG interpreted by me (3pts min.). @ -none X-rays interpreted by me (1pt min.). @ -None done CT interpreted by me (1pt min.). @ -None done U/S interpreted by me (1pt. min.). @ -None done What testing was considered but not performed or refused? (CT, X-rays, U/S, labs)? Why? @ -None What meds were considered but not given or refused? Why? @ -None Did you discuss the management of the patient with other professionals (professionals i.e. [facility] Sesay, REIMBURSEMENT REP, lab, RT, psych nurse, social scientist, service sprinkler helper, teacher, senior grants officer, transplant case manager)? Give summary @ -No Was smoking cessation discussed for >3mins.? @ -No Was critical care preformed (if so, how long)? @ -No Were there social determinants of health that impacted care today? How? (Homelessness, low income, unemployed, alcoholism, drug addiction, transportation, low edu. Level, literacy, decrease access to med. care, senior care, rehab)? @ -No Was there de-escalation of care discussed even if they declined (Discuss DNR or withdrawal of care, Hospice)? DNR status @ -No What co-morbidities impacted this encounter? (DM, HTN, Smoking, COPD, CAD, Cancer, CVA, ARF, Chemo, Hep., AIDS, mental health diagnosis, sleep apnea, morbid obesity)? @ -None Was patient admitted / discharged? Hospital course, mention meds given and route, prescriptions, significant lab abnormalities, going to OR and other pertinent info. @ -Discharge. 34-year-old female with abscess. Patient was evaluated the emergency department waiting room as a quick note. On my evaluation the patient she is resting company no signs acute distress. Her vitals are stable. Showed to have a abscess to the left buttock with no active drainage. Area is mildly erythematous with fluctuance to palpation. She has mild tenderness to palpation. Area has drained yesterday and patient will be given initial dose of Rocephin emergency department and be prescribed Bactrim to take over the next 5 days for cellulitis. Recommend that she continue warm compresses at home to continue to alleviate drainage of abscess. All questions answered at bedside an d strict return parameters have discussed with the patient she is verbalized understanding. Case discussed with my attending Undiagnosed new problem with uncertain prognosis? @ -No Drug Therapy requiring intensive monitoring for toxicity (Heparin, Nitro, Insulin, Cardizem)? @ -No Were any procedures done? @ -No Diagnosis/symptom? @ -Abscess Acute, or Chronic, or Acute on Chronic? @ -Acute Uncomplicated (without systemic symptoms) or Complicated (systemic symptoms)? @ -Uncomplicated Side effects of treatment? @ -No Exacerbation, Progression, or Severe Exacerbation? @ -No Poses a threat to life or bodily function? How? (Chest pain, [place], [place], pneumonia, PE, COPD, DKA, ARF, appy, cholecystitis, CVA, Diverticulitis, Homicidal, Suicidal, threat to staff... and all critical care pts) @ -No (Stieler,Genet) Disposition <Stariha,Rosanne - Last Filed: 06/06/24 11:59> Is patient prescribed a controlled substance at d/c from ED?: No Time of Disposition: 12:57 <Genet Naidu - Last Filed: 06/06/24 15:52> Clinical Impression: Cellulitis and abscess of buttock Disposition: HOME SELF-CARE Condition: Good Instructions (If sedation given, give patient instructions): Cellulitis (ED), Abscess (ED) Additional Instructions: Please return to the Emergency Department if symptoms worsen or any other concerns. Complete full course of antibiotics as prescribed. Recommend you continue warm compresses at home to continue with drainage. Prescriptions: Sulfamethox-Tmp 800-160Mg [Bactrim Ds] 1 each PO Q12HR #10 tab Referrals: Quincy Busch DO [Primary Care Provider] - 1-2 days
[2024-06-06 13:22] VITALS: BP 108/76; PULSE 68; RESP 16; TEMP 98.1
[2024-06-06] MEDS: cefTRIAXone 1,000 MG VIAL (IM USE) IM STA (13:23)
== END 2024-06-06 13:39 | disposition home or self-care (01) ==
LOC: EC 11:33
CPT/HCPCS: 96372; 99283

== ENCOUNTER 2024-08-04 21:24 | Emergency (ER) | payer OTHER ==
--- NOTE | 2024-08-04 21:39 | ED ---
Chest Pain HPI - General Chief Complaint: Chest Pain Stated Complaint: Chest/Back pain Time Seen by Provider: 08/04/24 21:30 Source: patient, RN notes reviewed, old records reviewed Mode of arrival: ambulatory Limitations: no limitations - History of Present Illness Initial Comments: This is a 34-year-old female to the ER for evaluation today. Patient states he has been feverish for about a week with cough and congestion, bringing up mucus, started today with back pain right-sided back pain into her lower back with occasional shortness of breath especially when laying down. Woke her up from sleep she became concern for difficulty breathing. No medical history takes no medications, daughter does have cough at home MD Complaint: chest pain, other (Cough congestion runny nose shortness of breath) -: days(s) (6) Onset: during rest, during exertion, awoke with symptoms Pain Location: substernal, right chest Pain Radiation: back Severity: moderate Severity scale (1-10): 7 Quality: aching Consistency: constant Improves With: nothing Worsens With: nothing Context: recent illness Anginal Symptoms: nausea, dyspnea Other Symptoms: cough, fever Treatments Prior to Arrival: none - Related Data Home Medications Medication Instructions Recorded Confirmed valACYclovir HCL [Valtrex] 1 tab PO ONCE 02/11/19 02/11/19 Previous Rx's Medication Instructions Recorded cephALEXin [Keflex] 500 mg PO Q6HR 7 Days #28 cap 05/10/19 Sulfamethox-Tmp 800-160Mg [Bactrim 1 each PO Q12HR #10 tab 06/06/24 Ds] Allergies Allergy/AdvReac Type Severity Reaction Status Date / Time No Known Allergies Allergy Verified 08/04/24 21:28 Review of Systems ROS Statement: Those systems with pertinent positive or pertinent negative responses have been documented in the HPI. ROS Other: All systems not noted in ROS Statement are negative. EKG Findings - EKG Comments: EKG Findings:: EKG sinus 79 MS 154 QRS 94 QTc 417 - EKG Results: EKG: interpreted by SRIDEVI Past Medical History Past Medical History: Asthma History of Any Multi-Drug Resistant Organisms: None Reported Past Surgical History: No Surgical Hx Reported Additional Past Surgical History / Comment(s): cerclage with 2nd Past Anesthesia/Blood Transfusion Reactions: No Reported Reaction Past Psychological History: Anxiety, Bipolar Smoking Status: Former smoker Past Alcohol Use History: Occasional Past Drug Use History: Marijuana - Past Family History Mother Family Medical History: Hyperlipidemia, Hypertension Additional Family Medical History / Comment(s): bipolar and anxiety General Exam Limitations: no limitations General appearance: alert, in no apparent distress Head exam: Present: atraumatic, normocephalic, normal inspection Eye exam: Present: normal appearance, PERRL, EOMI. Absent: scleral icterus, conjunctival injection, periorbital swelling ENT exam: Present: normal exam, mucous membranes moist Neck exam: Present: normal inspection. Absent: tenderness, meningismus, lymphadenopathy Respiratory exam: Present: normal lung sounds bilaterally. Absent: respiratory distress, wheezes, rales, rhonchi, stridor Cardiovascular Exam: Present: regular rate, normal rhythm, normal heart sounds. Absent: systolic murmur, diastolic murmur, rubs, gallop, clicks GI/Abdominal exam: Present: soft, normal bowel sounds. Absent: distended, tenderness, guarding, rebound, rigid Extremities exam: Present: normal inspection, full ROM, normal capillary refill. Absent: tenderness, pedal edema, joint swelling, calf tenderness Back exam: Present: normal inspection Neurological exam: Present: alert, oriented X3, CN II-XII intact Psychiatric exam: Present: normal affect, normal mood Skin exam: Present: warm, dry, intact, normal color. Absent: rash Course Vital Signs 08/04/24 08/04/24 21:25 21:45 Temperature 97.9 F Pulse Rate 83 81 Respiratory 18 15 Rate Blood Pressure 124/72 115/77 O2 Sat by Pulse 100 98 Oximetry - Reevaluation(s) Reevaluation #1: 08/04/24 21:46 Medical records reviewed Reevaluation #2: 08/04/24 23:28 Patient symptoms improved here in the ER Reevaluation #3: 08/04/24 23:28 Patient informed of results questions answered Reevaluation #4: Was pt. sent in by a medical professional or institution (, PA, ENGINEERING PRODUCTION WORKER, urgent care, hospital, or intermediate...) When possible be specific @ -no Did you speak to anyone other than the patient for history (EMS, parent, family, police, friend...)? What history was obtained from this source @ -no Did you review nursing and triage notes (agree or disagree)? Why? @ -agree Are old charts reviewed (outside hosp., previous admission, EMS record, old EKG, old radiological studies, urgent care reports/EKG's, intermediate records)? Report findings @ -yes Differential Diagnosis (chest pain, altered mental status, abdominal pain women, abdominal pain men, vaginal bleeding, weakness, fever, dyspnea, syncope, headache, dizziness, GI bleed, back pain, seizure, CVA, palpatations, mental health, musculoskeletal)? @ -prior EKG interpreted by me (3pts min.). @ -yes X-rays interpreted by me (1pt min.). @ -yes negative for acute disease CT interpreted by me (1pt min.). @ -no U/S interpreted by me (1pt. min.). @ -no What testing was considered but not performed or refused? (CT, X-rays, U/S, labs)? Why? @ -none What meds were considered but not given or refused? Why? @ -none Did you discuss the management of the patient with other professionals (professionals i.e. , PA, ENGINEERING PRODUCTION WORKER, lab, RT, psych nurse, hospital social worker, deck cadet, teacher, strategic intelligence officer, bilingual patient support caseworker)? Give summary @ -no Was smoking cessation discussed for >3mins.? @ -no Was critical care preformed (if so, how long)? @ -no Were there social determinants of health that impacted care today? How? (Homelessness, low income, unemployed, alcoholism, drug addiction, transportation, low edu. Level, literacy, decrease access to med. care, long-term, rehab)? @ -none Was there de-escalation of care discussed even if they declined (Discuss DNR or withdrawal of care, Hospice)? DNR status @ -no What co-morbidities impacted this encounter? (DM, HTN, Smoking, COPD, CAD, Cancer, CVA, ARF, Chemo, Hep., AIDS, mental health diagnosis, sleep apnea, morbid obesity)? @ -none Was patient admitted / discharged? Hospital course, mention meds given and route, prescriptions, significant lab abnormalities, going to OR and other pertinent info. @ - Undiagnosed new problem with uncertain prognosis? @ -no Drug Therapy requiring intensive monitoring for toxicity (Heparin, Nitro, Insulin, Cardizem)? @ -no Were any procedures done? @ -no Diagnosis/symptom? @ - Acute, or Chronic, or Acute on Chronic? @ -Acute Uncomplicated (without systemic symptoms) or Complicated (systemic symptoms)? @ -Complicated Side effects of treatment? @ -no Exacerbation, Progression, or Severe Exacerbation? @ -exacerbation Poses a threat to life or bodily function? How? (Chest pain, [place], [place], pneumonia, PE, COPD, DKA, ARF, appy, cholecystitis, CVA, Diverticulitis, Homicidal, Suicidal, threat to staff... and all critical care pts) @ -yes Reevaluation #5: Differential Chest Pain: Stable Angina, Unstable Angina, STEMI, NSTEMI Aortic Dissection, Pneumothorax, Musculoskeletal, Esophageal Spasm GERD, Cholecystitis, Pancreatitis, Zoster, this is not meant to be an all-inclusive list. Differential Dyspnea: Coronary syndrome, arrhythmia, tamponade, asthma, COPD, pulmonary embolism, pneumonia, pneumothorax, pulmonary effusion, anaphylaxis, diabetic ketoacidosis, flailed chest, pulmonary contusion, diaphragmatic rupture, anemia, neuromuscular, this is not meant to be an all-inclusive list. Differential Fever: Pneumonia, viral URI, endocarditis, myocarditis, pericarditis, otitis, sinusitis, peritonsillar Abscess, retropharyngeal Abscess, epiglottitis, peritonitis, appendicitis, Ximena cystitis, diverticulitis, hepatitis, colitis, UTI, PID, TOA, pyelonephritis, prostatitis, epididymitis, meningitis, encephalitis, pulmonary embolism, CVA, thyroid storm, pancreatitis, adrenal crisis, cavernous sinus thrombosis, this is not meant to be an all-inclusive list. Chest Pain MDM - MDM 34 Female with chest pain chest pain shortness of breath and dyspnea. No acute findings here in the ER, patient has negative D-dimer, chest x-ray normal testing is normal patient can be discharged home Disposition Clinical Impression: Atypical chest pain, Chest pain, Bacterial tracheitis, Walking pneumonia Disposition: HOME SELF-CARE Condition: Good Instructions (If sedation given, give patient instructions): Chest Pain (ED) Is patient prescribed a controlled substance at d/c from ED?: No Referrals: Quincy Busch DO [Primary Care Provider] - 1-2 days Time of Disposition: 23:30
[2024-08-04 22:07] LABS: Basophils # (A) 0.1 k/uL (0-0.2); Basophils % (A) 1 %; Eosinophils # (A) 0.2 k/uL (0-0.7); Eosinophils % (A) 2 %; HGB 13.3 gm/dL (11.4-16.0); Lymphocytes # (A) 3.6 k/uL (1.0-4.8); Lymphocytes % (A) 41 %; MCH 30.9 pg (25.0-35.0); MCHC 34.3 g/dL (31.0-37.0); MCV 90.1 fL (80.0-100.0); Mean Platelet Volume 7.7; Monocytes # (A) 0.5 k/uL (0-1.0); Monocytes % (A) 6 %; Neutrophils # (A) 4.2 k/uL (1.3-7.7); Neutrophils % (A) 48 %; Platelet Count 253 k/uL (150-450); RBC 4.33 m/uL (3.80-5.40); RDW 12.4 % (11.5-15.5); WBC 8.6 k/uL (3.8-10.6)
--- NOTE | 2024-08-04 22:09 | XR ---
EXAMINATION TYPE: XR chest 2V DATE OF EXAM: 08/04/2024 9:50 PM CLINICAL INDICATION:Female, 34 years old with history of Chest Pain; [facility] COMPARISON: Chest radiograph 05/17/2021 TECHNIQUE: XR chest 2V Frontal view of the chest. FINDINGS: Lungs/Pleura: There is no evidence of pleural effusion, focal consolidation, or pneumothorax. Pulmonary vascularity: Unremarkable. Heart/mediastinum: Cardiomediastinal silhouette is unremarkable. Musculoskeletal: No acute osseous pathology. Other findings: None IMPRESSION: No acute cardiopulmonary disease/process. [facility], , 08/04/2024 10:07 PM
[2024-08-04 22:20] LABS: ALT 14 U/L (4-34); AST 20 U/L (14-36); African American GFR (CKD) >90 (>60 ml/min/1.73 sqM); Albumin 4.3 g/dL (3.5-5.0); Alkaline Phosphatase 32 U/L (38-126); Anion Gap 5 mmol/L; Blood Urea Nitrogen 16 mg/dL (7-17); Calcium 9.5 mg/dL (8.4-10.2); Carbon Dioxide 25 mmol/L (22-30); Chloride 107 mmol/L (98-107); Glucose 113 mg/dL (74-99); Lipase 109 U/L (23-300); Magnesium 1.8 mg/dL (1.6-2.3); Non-African American GFR(CKD) >90 (>60 ml/min/1.73 sqM); Potassium 3.7 mmol/L (3.5-5.1); Sodium 137 mmol/L (137-145); Total Bilirubin 0.3 mg/dL (0.2-1.3); Total Protein 6.6 g/dL (6.3-8.2)
[2024-08-04 22:24] LABS: INR 0.9 (<1.2); Partial Thromboplastin Time 25.2 sec (22.0-30.0); Prothrombin Time 10.4 sec (10.0-12.5)
[2024-08-04 22:28] LABS: NT-Pro-B-Type Natriuretic Pept <20 pg/mL
[2024-08-04] MEDS: KETOROLAC 15 MG/ML 1 ML VIAL IVP STA (22:34)
[2024-08-04] MEDS: ACETAMINOPHEN TAB 500 MG TAB PO STA (22:35)
[2024-08-04] MEDS: SODIUM CHLORIDE 0.9% 1,000 ML IV STA ×2 (22:35→22:36)
[2024-08-04] MEDS: SODIUM CHLORIDE 0.9% 500 ML 500 ML IV STA (22:36)
[2024-08-05] MEDS: AZITHROMYCIN 500 MG TAB PO STA (00:36)
[2024-08-05] MEDS: IPRATROPIUM-ALBUTEROL 3 ML NEB INHALATION STA (00:36)
[2024-08-05] MEDS: DEXAMETHASONE SOD PHOSPHATE 10 MG/ML 1 ML VIAL IVP STA (00:37)
[2024-08-05 00:46] VITALS: BP 110/66; PULSE 69; RESP 18; TEMP 97.8
== END 2024-08-05 00:46 | disposition home or self-care (01) ==
LOC: EC 21:24
DX: J18.9 Pneumonia, unspecified organism (principal); J04.10 Acute tracheitis without obstruction; R07.89 Other chest pain; Z87.891 Personal history of nicotine dependence
CPT/HCPCS: 36415; 93005; 85379; 83880; 80053; 83690; 83735; 84484; 85025; 85610; 85730; 87636; 71046; 99285; 96374; 96361; 96375; J1885

== ENCOUNTER 2024-12-04 21:21 | Emergency (ER) | payer OTHER ==
--- NOTE | 2024-12-04 21:56 | ED ---
General Adult HPI - General Chief complaint: Chest Pain Stated complaint: Chest Pain/SOB Time Seen by Provider: 12/04/24 21:30 Source: patient Mode of arrival: ambulatory Limitations: no limitations - History of Present Illness Initial comments: Dictation was produced using [employer] dictation software. please excuse any grammatical, word or spelling errors. Chief Complaint: 34-year-old female with stabbing chest pain History of Present Illness: Patient 34-year-old female presents emergency department stabbing chest pain states it is sharp radiates across her chest. She has been coughing recently. States that her cough is productive of sputum. States she is also short of breath. Denies history of blood clots. Patient has no hypertension, diabetes or high cholesterol. She does have some family history of early onset ACS. The ROS documented in this emergency department record has been reviewed and confirmed by me. Those systems with pertinent positive or negative responses have been documented in the HPI. All other systems are other negative and/or noncontributory. - Related Data Home Medications Medication Instructions Recorded Confirmed valACYclovir HCL [Valtrex] 1 tab PO ONCE 02/11/19 02/11/19 Previous Rx's Medication Instructions Recorded cephALEXin [Keflex] 500 mg PO Q6HR 7 Days #28 cap 05/10/19 Sulfamethox-Tmp 800-160Mg [Bactrim 1 each PO Q12HR #10 tab 06/06/24 Ds] Azithromycin [Zithromax] 500 mg PO DAILY #5 tab 08/05/24 Allergies Allergy/AdvReac Type Severity Reaction Status Date / Time No Known Allergies Allergy Verified 12/04/24 21:28 Review of Systems ROS Statement: Those systems with pertinent positive or pertinent negative responses have been documented in the HPI. ROS Other: All systems not noted in ROS Statement are negative. Past Medical History Past Medical History: Asthma History of Any Multi-Drug Resistant Organisms: None Reported Past Surgical History: No Surgical Hx Reported Additional Past Surgical History / Comment(s): cerclage with 2nd Past Anesthesia/Blood Transfusion Reactions: No Reported Reaction Past Psychological History: Anxiety, Bipolar Smoking Status: Former smoker Past Alcohol Use History: Occasional Past Drug Use History: Marijuana - Past Family History Mother Family Medical History: Hyperlipidemia, Hypertension Additional Family Medical History / Comment(s): bipolar and anxiety General Exam - General Exam Comments Initial Comments: PHYSICAL EXAM: General Impression: Alert and oriented x3, not in acute distress HEENT: Normocephalic atraumatic, extra-ocular movements intact, pupils equal and reactive to light bilaterally, mucous membranes moist. Cardiovascular: Heart regular rate and rhythm Chest: Able to complete full sentences, no retractions, no tachypnea Abdomen: abdomen soft, non-tender, non-distended, no organomegaly Musculoskeletal: Pulses present and equal in all extremities, no peripheral edema Motor: no focal deficits noted Neurological: CN II-XII grossly intact, no focal motor or sensory deficits noted Skin: Intact with no visualized rashes Psych: Normal affect and mood Limitations: no limitations Course Vital Signs 12/04/24 12/04/24 21:26 21:36 Temperature 98.2 F Pulse Rate 81 Pulse Rate [ 84 Supine Hotel Maintenance Engineer] Respiratory 16 Rate Blood Pressure 121/79 O2 Sat by Pulse 98 Oximetry EKG Findings - EKG Comments: EKG Findings:: My EKG interpretation: Ventricular rate 83, sinus rhythm, MO 140, QRS 94, QTc 411. Overall, this EKG is unremarkable Medical Decision Making - Medical Decision Making Was pt. sent in by a medical professional or institution (, PA, UI PROGRAMMER, urgent care, hospital, or longterm...) When possible be specific @ -[No] Did you speak to anyone other than the patient for history (EMS, parent, family, police, friend...)? What history was obtained from this source @ -[No] Did you review nursing and triage notes (agree or disagree)? Why? @ -[I reviewed and agree with nursing and triage notes] Were old charts reviewed (outside hosp., previous admission, EMS record, old EKG, old radiological studies, urgent care reports/EKG's, longterm records)? Report findings @ -[No old charts were reviewed] Differential Diagnosis (chest pain, altered mental status, abdominal pain women, abdominal pain men, vaginal bleeding, musculoskeletal, weakness, fever, dyspnea, syncope, headache, dizziness, GI bleed, back pain, seizure, CVA, palpatations, mental health)? @ -Differential Chest Pain: Stable Angina, Unstable Angina, STEMI, NSTEMI Aortic Dissection, Pneumothorax, Musculoskeletal, Esophageal Spasm GERD, Cholecystitis, Pancreatitis, Zoster, this is not meant to be an all-inclusive list. EKG interpreted by me (3pts min.). @ -See above X-rays interpreted by me (1pt min.). @ -Chest x-ray shows no acute processes CT interpreted by me (1pt min.). @ -[None done] U/S interpreted by me (1pt. min.). @ -[None done] What testing was considered but not performed or refused? (CT, X-rays, U/S, labs)? Why? @ -[None] What meds were considered but not given or refused? Why? @ -[None] Was smoking cessation discussed for >3mins.? @ -[No] Were there social determinants of health that impacted care today? How? (Homelessness, low income, unemployed, alcoholism, drug addiction, t ransportation, low edu. Level, literacy, decrease access to med. care, residential, rehab)? @ -[No] Was there de-escalation of care discussed even if they declined (Discuss DNR or withdrawal of care, Hospice)? DNR status @ -[No] What co-morbidities impacted this encounter? (DM, HTN, Smoking, COPD, CAD, C ancer, CVA, ARF, Chemo, Hep., AIDS, mental health diagnosis, sleep apnea, morbid obesity)? @ -[None] Was patient admitted / discharged? Hospital course, mention meds given and route, prescriptions, significant lab abnormalities, going to OR and other pertinent info. @ -34-year-old female with atypical chest pain typical features. Vital signs are stable. She does have symptoms of respiratory infection. Laboratory evaluation is unremarkable. Pending D-dimer. Troponins negative. Chest x-ray is nonacute. D-dimer is negative. Patient reevaluated bedside finally stable condition. Patient discharged advised follow-up with primary care doctor. Patient has clinical presentation consistent with URI. Did you discuss the management of the patient with other professionals (professionals i.e. , PA, UI PROGRAMMER, lab, RT, psych nurse, social service director, pit recorder, teacher, correctional program officer, embedded case manager)? Give summary @ -[No] Was critical care preformed (if so, how long)? @ -[No] Undiagnosed new problem with uncertain prognosis? @ -[No] Drug Therapy requiring intensive monitoring for toxicity (Heparin, Nitro, Insulin, Cardizem)? @ -[No] Were any procedures done? @ -[No] Diagnosis/symptom? Acute, or Chronic, or Acute on Chronic? Uncomplicated (without systemic symptoms) or Complicated (systemic symptoms)? @ -Chest pain, viral URI Side effects of treatment? @ -[No] Exacerbation, Progression, or Severe Exacerbation? @ -[No] Poses a threat to life or bodily function? How? (Chest pain, [place], [place], pneumonia, PE, COPD, DKA, ARF, appy, cholecystitis, CVA, Diverticulitis, Homicidal, Suicidal, threat to staff... and all critical care pts) @ -[No] - Lab Data Result diagrams: 12/04/24 21:37 12/04/24 21:37 Lab Results 12/04/24 12/04/24 12/04/24 Range/Units 21:37 21:37 21:37 WBC 7.83 (4.50-10.00) 10*3/uL RBC 4.19 (4.10-5.20) 10*6/uL Hgb 12.7 (12.0-15.0) g/dL Hct 36.3 L (37.2-46.3) % MCV 86.6 (80.0-97.0) fL MCH 30.3 (27.0-32.0) pg MCHC 35.0 (32.0-37.0) g/dL Plt Count 223 (140-440) 10*3/uL MPV 10.4 (9.5-12.2) fL Immature Gran % (Auto) 0.3 % Neutrophils % 61.6 % Lymphocytes % 25.0 % Monocytes % 9.6 % Eosinophils % 2.7 % Basophils % 0.8 % Immature Gran # 0.02 (0.00-0.04) 10*3/uL Neutrophils # 4.83 (1.80-7.70) 10*3/uL Lymphocytes # 1.96 (0.90-5.00) 10*3/uL Monocytes # 0.75 (0.20-1.00) 10*3/uL Eosinophils # 0.21 (0.04-0.35) 10*3/uL Basophils # 0.06 (0.00-0.10) 10*3/uL PT 10.1 (10.0-12.5) sec INR 0.9 (<1.2) APTT 24.3 (22.0-30.0) sec D-Dimer <0.17 (<0.60) mg/L FEU Sodium 138 (137-145) mmol/L Potassium 4.0 (3.5-5.1) mmol/L Chloride 104 (98-107) mmol/L Carbon Dioxide 23 (22-30) mmol/L Anion Gap 11 mmol/L BUN 13 (7-17) mg/dL Creatinine 0.68 (0.52-1.04) mg/dL Est GFR (CKD-EPI)AfAm >90 (>60 ml/min/1.73 sqM) Est GFR (CKD-EPI)NonAf >90 (>60 ml/min/1.73 sqM) Glucose 98 (74-99) mg/dL Calcium 9.7 (8.4-10.2) mg/dL Magnesium 1.9 (1.6-2.3) mg/dL Total Bilirubin 0.3 (0.2-1.3) mg/dL AST 23 (14-36) U/L ALT 16 (4-34) U/L Alkaline Phosphatase 39 (38-126) U/L Troponin I (0.000-0.034) ng/mL Total Protein 6.5 (6.3-8.2) g/dL Albumin 4.2 (3.5-5.0) g/dL 04/24/25 Range/Units 21:37 WBC (4.50-10.00) 10*3/uL RBC (4.10-5.20) 10*6/uL Hgb (12.0-15.0) g/dL Hct (37.2-46.3) % MCV (80.0-97.0) fL MCH (27.0-32.0) pg MCHC (32.0-37.0) g/dL Plt Count (140-440) 10*3/uL MPV (9.5-12.2) fL Immature Gran % (Auto) % Neutrophils % % Lymphocytes % % Monocytes % % Eosinophils % % Basophils % % Immature Gran # (0.00-0.04) 10*3/uL Neutrophils # (1.80-7.70) 10*3/uL Lymphocytes # (0.90-5.00) 10*3/uL Monocytes # (0.20-1.00) 10*3/uL Eosinophils # (0.04-0.35) 10*3/uL Basophils # (0.00-0.10) 10*3/uL PT (10.0-12.5) sec INR (<1.2) APTT (22.0-30.0) sec D-Dimer (<0.60) mg/L FEU Sodium (137-145) mmol/L Potassium (3.5-5.1) mmol/L Chloride (98-107) mmol/L Carbon Dioxide (22-30) mmol/L Anion Gap mmol/L BUN (7-17) mg/dL Creatinine (0.52-1.04) mg/dL Est GFR (CKD-EPI)AfAm (>60 ml/min/1.73 sqM) Est GFR (CKD-EPI)NonAf (>60 ml/min/1.73 sqM) Glucose (74-99) mg/dL Calcium (8.4-10.2) mg/dL Magnesium (1.6-2.3) mg/dL Total Bilirubin (0.2-1.3) mg/dL AST (14-36) U/L ALT (4-34) U/L Alkaline Phosphatase (38-126) U/L Troponin I <0.012 (0.000-0.034) ng/mL Total Protein (6.3-8.2) g/dL Albumin (3.5-5.0) g/dL Disposition Clinical Impression: Viral URI with cough Disposition: HOME SELF-CARE Condition: Good Instructions (If sedation given, give patient instructions): Chest Pain (ED) Is patient prescribed a controlled substance at d/c from ED?: No Referrals: Quincy Busch DO [Primary Care Provider] - 1-2 days Time of Disposition: 23:00
[2024-12-04 22:09] LABS: Basophils # (A) 0.06 10*3/uL (0.00-0.10); Basophils % (A) 0.8 %; Eosinophils # (A) 0.21 10*3/uL (0.04-0.35); Eosinophils % (A) 2.7 %; HCT 36.3 % (37.2-46.3); HGB 12.7 g/dL (12.0-15.0); Lymphocytes # (A) 1.96 10*3/uL (0.90-5.00); MCH 30.3 pg (27.0-32.0); MCV 86.6 fL (80.0-97.0); Mean Platelet Volume 10.4 fL (9.5-12.2); Monocytes # (A) 0.75 10*3/uL (0.20-1.00); Monocytes % (A) 9.6 %; Neutrophils # (A) 4.83 10*3/uL (1.80-7.70); Neutrophils % (A) 61.6 %; Platelet Count 223 10*3/uL (140-440); RBC 4.19 10*6/uL (4.10-5.20); RDW 12.3 % (11.5-14.5); WBC 7.83 10*3/uL (4.50-10.00)
[2024-12-04 22:22] LABS: ALT 16 U/L (4-34); AST 23 U/L (14-36); African American GFR (CKD) >90 (>60 ml/min/1.73 sqM); Albumin 4.2 g/dL (3.5-5.0); Alkaline Phosphatase 39 U/L (38-126); Anion Gap 11 mmol/L; Blood Urea Nitrogen 13 mg/dL (7-17); Calcium 9.7 mg/dL (8.4-10.2); Carbon Dioxide 23 mmol/L (22-30); Chloride 104 mmol/L (98-107); Glucose 98 mg/dL (74-99); Magnesium 1.9 mg/dL (1.6-2.3); Non-African American GFR(CKD) >90 (>60 ml/min/1.73 sqM); Sodium 138 mmol/L (137-145); Total Bilirubin 0.3 mg/dL (0.2-1.3); Total Protein 6.5 g/dL (6.3-8.2)
[2024-12-04 22:27] LABS: INR 0.9 (<1.2); Partial Thromboplastin Time 24.3 sec (22.0-30.0); Prothrombin Time 10.1 sec (10.0-12.5)
--- NOTE | 2024-12-04 22:43 | XR ---
EXAMINATION TYPE: XR chest 2V DATE OF EXAM: 12/04/2024 10:14 PM COMPARISON: 08/04/2024 CLINICAL INDICATION: Female, 34 years old with history of Chest Pain, TECHNIQUE: XR chest 2V view(s) obtained. FINDINGS: The heart size is normal. The pulmonary vasculature is normal. The lungs are clear. IMPRESSION: 1. No acute pulmonary process. [facility], , 12/04/2024 10:40 PM
[2024-12-04 23:18] VITALS: BP 132/84; PULSE 80; RESP 18; TEMP 98.4
== END 2024-12-04 23:28 | disposition home or self-care (01) ==
LOC: EC 21:21
DX: R05.9 Cough, unspecified (principal); B97.89 Other viral agents as the cause of diseases classified elsewhere; J06.9 Acute upper respiratory infection, unspecified; Z87.891 Personal history of nicotine dependence
CPT/HCPCS: 36415; 71046; 80053; 83735; 84484; 85025; 85379; 85610; 85730; 93005; 99285